=== PATIENT | male | born 1960 | race Caucasian/White ===

== ENCOUNTER 2019-06-28 10:55 | Inpatient (IN) | payer MEDICARE ==
[~2019-06-28] VITALS: Ht 185.4 cm; Wt 95.0 kg
[~2019-06-28 10:55] MED LIST: APIX2.5T PO; ATOR20TA PO; CALC300T5 PO; CARV25TA12 PO; FOLI-17 PO; INSU100C5 SQ-INSULIN; INSU100I32 SQ; LORA-247 PO; OMEG1CAP26 PO; SEMA0.25 SQ; VERA180T6 PO
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
--- NOTE | 2019-06-28 12:09 | NUR ---
PULSE OX DIPPING TO 76% WHILE SLEEPING. OXYGEN PLACED AT 2LITERS VIA NC. AWAITING US.
--- NOTE | 2019-06-28 12:21 | NUR ---
US AT BS.
--- NOTE | 2019-06-28 13:45 | NUR ---
ATTEMPT FOR PERIPHERAL IV ON L ARM NEEDED FOR CT ORDER. PT WITH DIFFICULT IV ACCESS, WILL HAVE US GUIDED IV PLACED.
--- NOTE | 2019-06-28 13:56 | NUR ---
CT WAITING FOR IV ACCESS FOR CONTRAST STUDY
[2019-06-28] MEDS ORDERED: HEPARIN 5,000 UNITS/ML, 1ML IV PRN (14:00)
[2019-06-28] MEDS ORDERED: HEPARIN 25,000 UNITS/500ML PMX 500 ML IV PRN (14:00)
[2019-06-28] MEDS ORDERED: HEPARIN 5,000 UNITS/ML, 1ML IV ONE (14:00)
[2019-06-28] MEDS ORDERED: SODIUM CHLORIDE FLUSH 10ML SYR IVF ONE (14:00)
--- NOTE | 2019-06-28 14:45 | NUR ---
CURT ORTEZ ATTEMPTING US IV START.
--- NOTE | 2019-06-28 15:38 | NUR ---
REPORT TO MARINO ORTEZ. WAITING FOR IV AND CT PRIOR TO TRANSFER TO FLOOR.
--- NOTE | 2019-06-28 15:47 | NUR ---
CT CALLED TO NOTIFY IV IN PLACE. CT WILL TAKE PT TO ADMIT BED IF LEAD INJECTION MOLD TECHNICIAN AVAILABLE.
[2019-06-28 15:55] LABS: ALBUMIN 2.6 g/dL (3.4-5.0); ANION GAP 10 mmol/L (5-15); CALCIUM 8.7 mg/dL (8.5-10.1); CHLORIDE 92 mmol/L (98-107); CREATININE 6.04 mg/dL (0.7-1.3)
[2019-06-28] MEDS: INSULIN LISPRO 100 UNITS/ML, PEN SQ-INSULIN SCH ×2 (16:00→20:17)
[2019-06-28] MEDS ORDERED: ONDANSETRON 2MG/ML, 2ML IVPush PRN (16:00)
[2019-06-28] MEDS ORDERED: PROMETHAZINE 25 MG/ML, 1ML IM PRN (16:00)
[2019-06-28] MEDS ORDERED: LABETALOL 5MG/ML, 20ML IVPush PRN (16:00)
[2019-06-28] MEDS ORDERED: ACETAMINOPHEN 325 MG TABLET PO PRN (16:00)
[2019-06-28] MEDS ORDERED: hydrALAzine 20 MG/ML, 1ML IVPush PRN (16:00)
--- NOTE | 2019-06-28 16:09 | NUR ---
PT TO CT
[2019-06-28] MEDS ORDERED: OMNIPAQUE 350 MG/ML, 100ML BOTTLE ONE (16:34)
[2019-06-28 16:40] LABS: HEMOGLOBIN A1C 6.2 % (4.2-6.3)
[2019-06-28 16:46] LABS: INTERNATIONAL NORMALIZED RATIO 1.14 (0.93-1.1); PROTHROMBIN TIME 11.9 Seconds (9.6-11.5)
[2019-06-28] MEDS ORDERED: SODIUM POLYSTYRENE SULFONATE ORAL SUSP PO ONE (17:00)
[2019-06-28 17:01] VITALS: BP 156/81
[2019-06-28 18:13] VITALS: BP 156/81
[2019-06-28] MEDS: SODIUM CHLORIDE 0.9% 1,000 ML IV SCH (18:22)
[2019-06-28 20:05] LABS: MD YES; MEAN CORPUSCULAR HEMOGLOBIN 34.5 pg (27.5-34.5); MEAN CORPUSCULAR HGB CONC 32.1 g/dL (33.2-36.2); MEAN CORPUSCULAR VOLUME 107.6 fL (81-97); RED CELL DISTRIBUTION WIDTH 20.5 % (9.4-14.8)
[2019-06-28 20:07] LABS: BAND#(MANUAL) 1.33 x10^3/uL; BANDS%(MANUAL) 58 % (0-7); BASOS#(MANUAL) 0.05 x10^3/uL (0-0.1); BASOS% (MANUAL) 2 % (0-1); EOS#(MANUAL) 0.05 x10^3/uL (0.0-0.4); EOS% (MANUAL) 2 % (1-7); LYMPH#(MANUAL) 0.39 x10^3/uL (1-3.4); LYMPHS% (MANUAL) 17 % (22-44); METAMYELOCYTES# (MANUAL) 0.07 x10^3/uL (0-0); METAMYELOCYTES% (MANUAL) 3 % (0-1); MONOS#(MANUAL) 0.07 x10^3/uL (0.3-2.7); MONOS% (MANUAL) 3 % (2-9); NRBC % (MANUAL) 2 % (0-1); SEG#(MANUAL) 0.35 x10^3/uL (1.8-6.8); SEGS% (MANUAL) 15 % (42-75)
[2019-06-28 20:08] LABS: ANISOCYTOSIS 2+; HOWELL-JOLLY BODIES 1+; POLYCHROMASIA 1+; TARGET CELLS 1+
[2019-06-28 20:09] LABS: <PLATELET ESTIMATE> ADEQUATE; <PLT MORPHOLOGY> NORMAL PLT MORPH; OVALOCYTES 1+
[2019-06-28 20:10] LABS: ECHINOCYTES 1+
[2019-06-28 20:19] LABS: PLATELET COUNT 235 x10^3/uL (130-400)
[2019-06-28] MEDS: ATORVASTATIN 20 MG TABLET PO SCH (20:20)
[2019-06-28 20:23] VITALS: BP 126/76
[2019-06-28 22:05] LABS: ANION GAP 11 mmol/L (5-15); CALCIUM 8.3 mg/dL (8.5-10.1); CHLORIDE 93 mmol/L (98-107); CREATININE 6.27 mg/dL (0.7-1.3)
[2019-06-29 02:48] VITALS: BP 147/81
[2019-06-29 03:10] LABS: CLOSTRIDIUM DIFFICILE ANTIGEN NEGATIVE; CLOSTRIDIUM DIFFICILE TOXIN NEGATIVE (Negative)
[2019-06-29 04:01] LABS: ALANINE AMINOTRANSFERASE 15 U/L (12-78); ALBUMIN 2.3 g/dL (3.4-5.0); ANION GAP 15 mmol/L (5-15); CALCIUM 8.3 mg/dL (8.5-10.1); CHLORIDE 92 mmol/L (98-107); CREATININE 6.71 mg/dL (0.7-1.3)
[2019-06-29 04:04] LABS: ALKALINE PHOSPHATASE 63 U/L (45-117); BILIRUBIN,TOTAL 0.9 mg/dL (0.2-1.0); TOTAL PROTEIN 6.2 g/dL (6.4-8.2)
[2019-06-29 04:31] LABS: MD YES; MEAN CORPUSCULAR HEMOGLOBIN 34.8 pg (27.5-34.5); MEAN CORPUSCULAR HGB CONC 32.7 g/dL (33.2-36.2); MEAN CORPUSCULAR VOLUME 106.4 fL (81-97); MEAN PLATELET VOLUME 8.8 fL (7.4-10.4); PLATELET COUNT 207 x10^3/uL (130-400); RED CELL DISTRIBUTION WIDTH 20.9 % (9.4-14.8)
[2019-06-29 04:37] LABS: BAND#(MANUAL) 0.57 x10^3/uL; BANDS%(MANUAL) 27 % (0-7); EOS#(MANUAL) 0.08 x10^3/uL (0.0-0.4); EOS% (MANUAL) 4 % (1-7); LYMPH#(MANUAL) 0.48 x10^3/uL (1-3.4); LYMPHS% (MANUAL) 23 % (22-44); METAMYELOCYTES# (MANUAL) 0.06 x10^3/uL (0-0); METAMYELOCYTES% (MANUAL) 3 % (0-1); MONOS#(MANUAL) 0.04 x10^3/uL (0.3-2.7); MONOS% (MANUAL) 2 % (2-9); NRBC % (MANUAL) 15 % (0-1); SEG#(MANUAL) 0.86 x10^3/uL (1.8-6.8); SEGS% (MANUAL) 41 % (42-75)
[2019-06-29 04:38] LABS: <PLATELET ESTIMATE> ADEQUATE; ANISOCYTOSIS 2+; ECHINOCYTES 1+; HOWELL-JOLLY BODIES 1+; OVALOCYTES 1+; PMNS WITH VACUOLES 1+; POLYCHROMASIA 1+; TARGET CELLS 1+; TEAR DROPS 1+
[2019-06-29 04:39] LABS: LARGE PLATELETS 1+
[2019-06-29] MEDS: SODIUM CHLORIDE 0.9% 1,000 ML IV SCH ×2 (06:32→22:44)
[2019-06-29 06:45] VITALS: BP 151/79
[2019-06-29] MEDS ORDERED: LOPERAMIDE 2 MG CAPSULE PO PRN (08:30)
[2019-06-29] MEDS: INSULIN LISPRO 100 UNITS/ML, PEN SQ-INSULIN SCH ×4 (08:30→21:21)
[2019-06-29] MEDS ORDERED: SODIUM POLYSTYRENE SULFONATE ORAL SUSP PO ONE (08:30)
[2019-06-29] MEDS: FOLIC ACID 1 MG TABLET PO SCH (09:00)
[2019-06-29] MEDS: CARVEDILOL 25 MG TABLET PO SCH (09:00)
[2019-06-29] MEDS: VERAPAMIL ER 180MG TABLET.ER PO SCH (09:00)
[2019-06-29 12:36] VITALS: BP 129/78
[2019-06-29] MEDS ORDERED: GLUCAGON 1 MG IM PRN (15:00)
[2019-06-29] MEDS ORDERED: DEXTROSE 50%, 50ML SYRINGE IVPush PRN (15:00)
[2019-06-29] MEDS ORDERED: DEXTROSE 4 GM TAB.CHEW PO PRN (15:00)
[2019-06-29] MEDS ORDERED: LIDOCAINE 1%, 10ML ONE (17:51)
[2019-06-29] MEDS ORDERED: FLUMAZENIL 0.1 MG/1 ML, 5ML ONE (18:05)
[2019-06-29] MEDS ORDERED: MIDAZOLAM 1 MG/ML, 5ML ONE (18:05)
[2019-06-29] MEDS ORDERED: FENTANYL PF 100 MCG/2ML ONE (18:05)
[2019-06-29] MEDS ORDERED: NALOXONE 1 MG/ML, 2ML ONE (18:06)
[2019-06-29] MEDS ORDERED: HEPARIN 1,000 UNITS/ML, 10ML ONE (18:06)
[2019-06-29] MEDS ORDERED: ALTEPLASE 10 MG in SODIUM CHLORIDE 0.9% 90 ML IV SCH (18:30)
[2019-06-29] MEDS: ATORVASTATIN 20 MG TABLET PO SCH (21:21)
[2019-06-29] MEDS: SODIUM CHLORIDE FLUSH 10ML SYR IVF SCH (21:29)
[2019-06-29 21:30] VITALS: BP 141/82
[2019-06-29] MEDS: APIXABAN 2.5 MG TABLET PO SCH (22:44)
[2019-06-30 00:23] VITALS: BP 112/55
[2019-06-30 01:04] VITALS: BP 123/54
[2019-06-30 02:00] VITALS: BP 108/55
[2019-06-30 05:19] LABS: ANION GAP 11 mmol/L (5-15); CALCIUM 8.3 mg/dL (8.5-10.1); CHLORIDE 97 mmol/L (98-107)
[2019-06-30 05:22] LABS: ALANINE AMINOTRANSFERASE 13 U/L (12-78); ALKALINE PHOSPHATASE 63 U/L (45-117); BILIRUBIN,TOTAL 0.8 mg/dL (0.2-1.0); CREATININE 5.22 mg/dL (0.7-1.3); TOTAL PROTEIN 5.8 g/dL (6.4-8.2)
[2019-06-30 08:00] VITALS: BP 170/51
[2019-06-30] MEDS: VERAPAMIL ER 180MG TABLET.ER PO SCH (08:55)
[2019-06-30] MEDS: INSULIN LISPRO 100 UNITS/ML, PEN SQ-INSULIN SCH ×2 (08:56→11:00)
[2019-06-30] MEDS: FOLIC ACID 1 MG TABLET PO SCH (08:56)
[2019-06-30] MEDS: CARVEDILOL 25 MG TABLET PO SCH (08:56)
[2019-06-30] MEDS: APIXABAN 2.5 MG TABLET PO SCH (08:56)
[2019-06-30] MEDS: SODIUM CHLORIDE FLUSH 10ML SYR IVF SCH (09:00)
[2019-06-30 10:00] VITALS: BP 130/75
[2019-06-30] MEDS ORDERED: LOPE2CAP PO (13:58)
[2019-06-30 14:14] VITALS: BP 143/64
== END 2019-06-30 15:36 | disposition home or self-care (01) | DRG 252 ==
LOC: ED 13:48 → EDIP 14:46 → 4WST 16:36
PROVIDERS: ADMIT Internal Medicine; ATTEND Internal Medicine
PROC: 05753DZ Dilation of Right Subclavian Vein with Intraluminal Device, Percutaneous Approach (ICD-10-PCS; principal; 2019-06-29)
PROC: 05773ZZ Dilation of Right Axillary Vein, Percutaneous Approach (ICD-10-PCS; 2019-06-29)
PROC: B546ZZ3 Ultrasonography of Right Subclavian Vein, Intravascular (ICD-10-PCS; 2019-06-29)
PROC: 5A1D70Z Performance of Urinary Filtration, Intermittent, Less than 6 Hours Per Day (ICD-10-PCS; 2019-06-29)
PROC: B51M1ZZ Fluoroscopy of Right Upper Extremity Veins using Low Osmolar Contrast (ICD-10-PCS; 2019-06-29)
DX: I82.621 Acute embolism and thrombosis of deep veins of right upper extremity (principal); N18.6 End stage renal disease; I12.0 Hypertensive chronic kidney disease with stage 5 chronic kidney disease or end stage renal disease; C18.9 Malignant neoplasm of colon, unspecified; K52.1 Toxic gastroenteritis and colitis; T86.12 Kidney transplant failure; I82.A11 Acute embolism and thrombosis of right axillary vein; D63.1 Anemia in chronic kidney disease; E11.22 Type 2 diabetes mellitus with diabetic chronic kidney disease; E78.5 Hyperlipidemia, unspecified; E87.5 Hyperkalemia; I25.10 Atherosclerotic heart disease of native coronary artery without angina pectoris; K59.00 Constipation, unspecified; T45.1X5A Adverse effect of antineoplastic and immunosuppressive drugs, initial encounter; Y92.89 Other specified places as the place of occurrence of the external cause; Z79.01 Long term (current) use of anticoagulants; Z85.038 Personal history of other malignant neoplasm of large intestine; Z86.718 Personal history of other venous thrombosis and embolism; Z90.49 Acquired absence of other specified parts of digestive tract; Z99.2 Dependence on renal dialysis
CPT/HCPCS: 36415; 37238; 37252; 80048; 80053; 82040; 82962; 83036; 83735; 84100; 85025; 85520; 85610; 86704; 86706; 87324; 87340; 89055; 90935; 99156; 99157; C1725; G0378; J1644; J2250; J3010; Q9967; C1751; C1753; C1769; C1876; C1894; J1815; J2310; J7030

== ENCOUNTER 2019-09-19 16:06 | Inpatient (IN) | payer MEDICARE ==
[~2019-09-19] VITALS: Ht 188 cm; Wt 97.5 kg
[~2019-09-19 16:06] MED LIST changes: +LOPE2CAP PO
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
[2019-09-19 17:21] LABS: ALANINE AMINOTRANSFERASE 12 U/L (12-78); ALBUMIN 2.3 g/dL (3.4-5.0); ANION GAP 7 mmol/L (5-15); CALCIUM 9.3 mg/dL (8.5-10.1); CHLORIDE 98 mmol/L (98-107); CREATININE 4.58 mg/dL (0.7-1.3)
--- NOTE | 2019-09-19 17:23 | NUR ---
PT REFUSING TO HAVE LABS DRAWN PERIPHERALLY, PT HAS A PORT. OK PER ERMD TO ACCESS PORT, LABS DRAWN AND SENT.
[2019-09-19 17:26] LABS: ALKALINE PHOSPHATASE 62 U/L (45-117); BILIRUBIN,TOTAL 0.7 mg/dL (0.2-1.0); TOTAL PROTEIN 5.5 g/dL (6.4-8.2)
[2019-09-19 17:31] LABS: INTERNATIONAL NORMALIZED RATIO 1.14 (0.93-1.1); PROTHROMBIN TIME 12.1 Seconds (9.6-11.5)
--- NOTE | 2019-09-19 17:32 | NUR ---
NUMBER MARY JANE [phone]
[2019-09-19 17:37] LABS: MD YES; MEAN CORPUSCULAR HEMOGLOBIN 34.2 pg (27.5-34.5); MEAN CORPUSCULAR HGB CONC 32.9 g/dL (33.2-36.2); MEAN CORPUSCULAR VOLUME 103.9 fL (81-97); MEAN PLATELET VOLUME 7.9 fL (7.4-10.4); PLATELET COUNT 156 x10^3/uL (130-400); RED BLOOD COUNT 2.85 x10^6/uL (4.38-5.82); RED CELL DISTRIBUTION WIDTH 21.6 % (9.4-14.8)
[2019-09-19 17:46] LABS: BAND#(MANUAL) 0.16 x10^3/uL; BANDS%(MANUAL) 8 % (0-7); LYMPHS% (MANUAL) 25 % (22-44); MONOS#(MANUAL) 0.04 x10^3/uL (0.3-2.7); MONOS% (MANUAL) 2 % (2-9); NRBC % (MANUAL) 7 % (0-1); SEGS% (MANUAL) 65 % (42-75)
[2019-09-19 17:47] LABS: <PLATELET ESTIMATE> ADEQUATE; <PLT MORPHOLOGY> NORMAL PLT MORPH; ANISOCYTOSIS 2+; ECHINOCYTES 1+; OVALOCYTES 1+; POLYCHROMASIA 1+; TARGET CELLS 1+; TEAR DROPS 1+
[2019-09-19 17:53] LABS: ACETONE, SERUM Negative (Negative)
[2019-09-19] MEDS ORDERED: CEFTRIAXONE PMX 1GM/50ML 50 ML IVPB ONE (18:00)
[2019-09-19] MEDS ORDERED: ACETAMINOPHEN 500 MG TABLET PO ONE (18:00)
[2019-09-19] MEDS ORDERED: SODIUM CHLORIDE 0.9% 1,000ML IVBOLUS ONE ×2 (18:30→20:30)
--- NOTE | 2019-09-19 18:32 | NUR ---
PT WITH LOW BP NOW 82/45. ERMD UPDATED, ORDERS RECIEVED FOR FLUID BOLUS. WILL MEDICATE PER MAR. Addendum: 09/19/19 at 1848 by MAISHA CHARTED BY JANAK VARELA
--- NOTE | 2019-09-19 18:59 | NUR ---
PT BP NOW 114/44 S/P BOLUS, ERMD IN TO EVAL PT. ORDERS RECIEVED FOR CONTINUOUS FLUIDS AT THIS TIME. OK TO HANG ABX PER . REPORT TO MORRIS RN
[2019-09-19] MEDS ORDERED: SODIUM CHLORIDE 0.9% 1,000 ML IV ONE (19:00)
[2019-09-19] MEDS ORDERED: CEFTRIAXONE PMX 1GM/50ML 50 ML ONE (19:02)
[2019-09-19] MEDS ORDERED: VANCOMYCIN PER PHARMACY MC PRN (19:30)
[2019-09-19] MEDS ORDERED: MEROPENEM 1 GM in SODIUM CHLORIDE 0.9% 100 ML IV SCH (19:30)
[2019-09-19] MEDS ORDERED: VANCOMYCIN PMX 1GM/200ML 200 ML IV ONE (19:30)
[2019-09-19] MEDS ORDERED: morphine SULFATE 10 MG/ML, 1ML IVPush PRN (20:00)
[2019-09-19] MEDS ORDERED: DOCUSATE 100 MG CAPSULE PO PRN (20:00)
[2019-09-19] MEDS ORDERED: OXYcodone IR 5MG TABLET PO PRN (20:00)
[2019-09-19] MEDS ORDERED: ONDANSETRON ODT 4 MG PO PRN (20:00)
[2019-09-19] MEDS ORDERED: BISACODYL 10 MG SUPP PR PRN (20:00)
[2019-09-19] MEDS ORDERED: hydrALAzine 20 MG/ML, 1ML IVPush PRN (20:00)
[2019-09-19] MEDS ORDERED: HEPARIN 5,000 UNITS/ML, 1ML SQ SCH (20:00)
[2019-09-19] MEDS ORDERED: ONDANSETRON 2MG/ML, 2ML IVPush PRN (20:00)
[2019-09-19] MEDS ORDERED: PROMETHAZINE 25 MG/ML, 1ML IM PRN (20:00)
[2019-09-19] MEDS ORDERED: POLYETHYLENE GLYCOL 17 GM PACKET PO PRN (20:00)
[2019-09-19] MEDS ORDERED: ACETAMINOPHEN 500 MG TABLET ONE (20:06)
[2019-09-19 20:21] LABS: FREE T4 (FREE THYROXINE) 1.43 ng/dL (0.76-1.46)
[2019-09-19] MEDS: MEROPENEM 500 MG in SODIUM CHLORIDE 0.9% 100 ML IV SCH (20:31)
--- NOTE | 2019-09-19 20:34 | NUR ---
Pt noted to be hypotensive with IVF infusing at a rate of 125ml/hr showing a MAP of 55. The IVF was open to bolus. The MAP improved to 62. MD informed and a 3rd liter IVF was ordered as bolus. Rocephin given. Meropenem infusing.
--- NOTE | 2019-09-19 20:45 | NUR ---
Per MD order, IVF were stopped. Pt moved to trauma bay for ICU admit and pressors. Warming device removed from bed.
--- NOTE | 2019-09-19 20:46 | NUR ---
PT MOVED FROM ROOM 15 TO T3. REPORT RECEIVED, POC DISCUSSED, CARE ASSUMED. PT RESTING QUIETLY. NAD. VS UPDATED.
--- NOTE | 2019-09-19 20:54 | NUR ---
PT PLACED ON MEAT INSPECTOR, SHOWS NSR WITH 1 DEG[address] AV BLOCK,
[2019-09-19] MEDS ORDERED: APIXABAN 2.5 MG TABLET PO SCH (21:00)
--- NOTE | 2019-09-19 21:14 | NUR ---
REPORT TO PÉREZ TAVERAS. PT TO BE ADMITTED TO CCU [id number].
[2019-09-19] MEDS: INSULIN LISPRO 100 UNITS/ML, PEN SQ-INSULIN SCH (21:44)
[2019-09-19] MEDS: INSULIN GLARGINE 100 UNITS/ML, PEN SQ-INSULIN SCH (21:45)
[2019-09-19 21:48] VITALS: BP 129/60
[2019-09-19] MEDS: CALCIUM CARBONATE 500 MG TAB.CHEW PO SCH (21:56)
[2019-09-19] MEDS: ATORVASTATIN 20 MG TABLET PO SCH (21:56)
[2019-09-19] MEDS ORDERED: PHARMACOKINETIC CONSULTATION MC ONE (22:00)
[2019-09-19] MEDS ORDERED: VANCOMYCIN 1,500 MG in SODIUM CHLORIDE 0.9% 250 ML IV ONE (22:00)
[2019-09-19] MEDS ORDERED: PHARMACOKINETIC MONITORING MC PRN (22:00)
[2019-09-20] MEDS ORDERED: NOREPINEPHRINE 8 MG in SODIUM CHLORIDE 0.9% 242 ML IV PRN
[2019-09-20 04:07] VITALS: BP 117/45
[2019-09-20 04:51] LABS: ALANINE AMINOTRANSFERASE 13 U/L (12-78); ALBUMIN 2.1 g/dL (3.4-5.0); ANION GAP 7 mmol/L (5-15); CHLORIDE 99 mmol/L (98-107); CREATININE 4.65 mg/dL (0.7-1.3)
[2019-09-20 04:53] LABS: ALKALINE PHOSPHATASE 54 U/L (45-117); BILIRUBIN,TOTAL 0.8 mg/dL (0.2-1.0); CHOL/HDL RATIO 2.1; CHOLESTEROL, TOTAL 77 mg/dL (140-239); HDL CHOL % 48 % (26-37); HDL CHOLESTEROL (DIRECT) 37 mg/dL (40-60); LDL CHOLESTEROL,CALCULATED 16 mg/dL (54-169); LDL/HDL RATIO 0.4 (0.5-3.0); TOTAL PROTEIN 5.3 g/dL (6.4-8.2); TRIGLYCERIDES 121 mg/dL (50-200); VLDL CHOLESTEROL 24 mg/dL (0-25)
[2019-09-20 05:51] LABS: MD YES; MEAN CORPUSCULAR HEMOGLOBIN 33.9 pg (27.5-34.5); MEAN CORPUSCULAR HGB CONC 32.5 g/dL (33.2-36.2); MEAN CORPUSCULAR VOLUME 104.1 fL (81-97); MEAN PLATELET VOLUME 8.8 fL (7.4-10.4); PLATELET COUNT 174 x10^3/uL (130-400); RED BLOOD COUNT 2.87 x10^6/uL (4.38-5.82); RED CELL DISTRIBUTION WIDTH 21.9 % (9.4-14.8)
[2019-09-20 05:56] LABS: BANDS%(MANUAL) 43 % (0-7); BASOS#(MANUAL) 0.02 x10^3/uL (0-0.1); BASOS% (MANUAL) 1 % (0-1); LYMPH#(MANUAL) 0.38 x10^3/uL (1-3.4); LYMPHS% (MANUAL) 18 % (22-44); METAMYELOCYTES# (MANUAL) 0.23 x10^3/uL (0-0); METAMYELOCYTES% (MANUAL) 11 % (0-1); MONOS#(MANUAL) 0.02 x10^3/uL (0.3-2.7); MONOS% (MANUAL) 1 % (2-9); MYELOCYTES# (MANUAL) 0.04 x10^3/uL (0-0); MYELOCYTES% (MANUAL) 2 % (0-0); NRBC % (MANUAL) 7 % (0-1); SEGS% (MANUAL) 24 % (42-75)
[2019-09-20 06:02] LABS: ANISOCYTOSIS 2+; OVALOCYTES 1+; TARGET CELLS 1+
[2019-09-20 06:03] LABS: ECHINOCYTES 1+; POLYCHROMASIA 1+
[2019-09-20 06:04] LABS: HOWELL-JOLLY BODIES 1+
[2019-09-20 06:05] LABS: <PLATELET ESTIMATE> ADEQUATE; <PLT MORPHOLOGY> NORMAL PLT MORPH; PMNS WITH VACUOLES 1+
[2019-09-20] MEDS ORDERED: HEPARIN 5,000 UNITS/ML, 1ML ONE (06:44)
[2019-09-20] MEDS ORDERED: HEPARIN 25,000 UNITS/250ML PMX 250 ML ONE (06:44)
[2019-09-20] MEDS: INSULIN LISPRO 100 UNITS/ML, PEN SQ-INSULIN SCH ×4 (08:30→21:44)
[2019-09-20] MEDS ORDERED: VERAPAMIL ER 180MG TABLET.ER PO SCH (09:00)
[2019-09-20] MEDS ORDERED: CARVEDILOL 25 MG TABLET PO SCH (09:00)
[2019-09-20] MEDS: MEROPENEM 500 MG in SODIUM CHLORIDE 0.9% 100 ML IV SCH ×2 (09:04→21:50)
[2019-09-20] MEDS: CALCIUM CARBONATE 500 MG TAB.CHEW PO SCH ×2 (09:10→21:30)
[2019-09-20] MEDS: FOLIC ACID 1 MG TABLET PO SCH (09:10)
[2019-09-20] MEDS: LORATADINE 10 MG TABLET PO SCH (09:10)
[2019-09-20] MEDS ORDERED: HEPARIN 5,000 UNITS/ML, 1ML IV ONE (10:00)
[2019-09-20] MEDS: HEPARIN 25,000 UNITS/250ML PMX 250 ML IV PRN (10:49)
[2019-09-20] MEDS: ATORVASTATIN 20 MG TABLET PO SCH (21:30)
[2019-09-20] MEDS: INSULIN GLARGINE 100 UNITS/ML, PEN SQ-INSULIN SCH (21:51)
[2019-09-21 04:00] VITALS: BP 118/52
[2019-09-21 05:29] LABS: ALANINE AMINOTRANSFERASE 17 U/L (12-78); ANION GAP 8 mmol/L (5-15); CALCIUM 8.8 mg/dL (8.5-10.1); CHLORIDE 94 mmol/L (98-107)
[2019-09-21 05:32] LABS: ALKALINE PHOSPHATASE 56 U/L (45-117); BILIRUBIN,TOTAL 0.9 mg/dL (0.2-1.0); TOTAL PROTEIN 5.6 g/dL (6.4-8.2); VANCOMYCIN,RANDOM 14.5 mcg/mL
[2019-09-21 06:01] LABS: MEAN CORPUSCULAR HEMOGLOBIN 33.9 pg (27.5-34.5); MEAN CORPUSCULAR HGB CONC 32.6 g/dL (33.2-36.2); MEAN CORPUSCULAR VOLUME 103.9 fL (81-97); MEAN PLATELET VOLUME 9.9 fL (7.4-10.4); PLATELET COUNT 150 x10^3/uL (130-400); RED BLOOD COUNT 2.72 x10^6/uL (4.38-5.82); RED CELL DISTRIBUTION WIDTH 22.6 % (9.4-14.8)
[2019-09-21 06:02] LABS: MD YES
[2019-09-21 06:05] LABS: BANDS%(MANUAL) 9 % (0-7); EOS#(MANUAL) 0.07 x10^3/uL (0.0-0.4); EOS% (MANUAL) 3 % (1-7); LYMPH#(MANUAL) 0.18 x10^3/uL (1-3.4); LYMPHS% (MANUAL) 8 % (22-44); METAMYELOCYTES# (MANUAL) 0.07 x10^3/uL (0-0); METAMYELOCYTES% (MANUAL) 3 % (0-1); MONOS#(MANUAL) 0.09 x10^3/uL (0.3-2.7); MONOS% (MANUAL) 4 % (2-9); NRBC % (MANUAL) 4 % (0-1); SEG#(MANUAL) 1.61 x10^3/uL (1.8-6.8); SEGS% (MANUAL) 73 % (42-75)
[2019-09-21 06:06] LABS: <PLATELET ESTIMATE> ADEQUATE; ANISOCYTOSIS 2+; ECHINOCYTES 1+; HOWELL-JOLLY BODIES 1+; LARGE PLATELETS 1+; OVALOCYTES 1+; PMNS WITH VACUOLES 1+; POLYCHROMASIA 1+; TARGET CELLS 1+
[2019-09-21] MEDS ORDERED: SODIUM CHLORIDE 0.9%, 500ML IVBOLUS ONE (08:30)
[2019-09-21] MEDS: MEROPENEM 500 MG in SODIUM CHLORIDE 0.9% 100 ML IV SCH ×2 (08:45→21:05)
[2019-09-21] MEDS: HEPARIN 25,000 UNITS/250ML PMX 250 ML IV PRN (08:47)
[2019-09-21] MEDS: INSULIN LISPRO 100 UNITS/ML, PEN SQ-INSULIN SCH ×4 (08:51→21:15)
[2019-09-21] MEDS: FOLIC ACID 1 MG TABLET PO SCH (09:00)
[2019-09-21] MEDS: LORATADINE 10 MG TABLET PO SCH (09:00)
[2019-09-21] MEDS: CALCIUM CARBONATE 500 MG TAB.CHEW PO SCH ×2 (09:00→21:05)
[2019-09-21] MEDS ORDERED: VANCOMYCIN 1,800 MG in SODIUM CHLORIDE 0.9% 250 ML IV ONE (11:00)
[2019-09-21] MEDS ORDERED: ARANESP 100 MCG/ML **ESRD IV SCH (11:30)
[2019-09-21] MEDS ORDERED: VANCOMYCIN 1,000 MG in SODIUM CHLORIDE 0.9% 250 ML IV ONE (12:00)
[2019-09-21] MEDS ORDERED: EPINEPHRINE 1 MG/ML, 1ML ONE (14:20)
[2019-09-21] MEDS ORDERED: BUPIVACAINE/PF 0.5% ONE (14:20)
[2019-09-21] MEDS ORDERED: MIDAZOLAM 1 MG/ML, 5ML ONE (15:38)
[2019-09-21] MEDS ORDERED: FENTANYL PF 250 MCG/5ML ONE (15:38)
[2019-09-21] MEDS ORDERED: PROPOFOL 10 MG/ML, 20ML ONE (15:40)
[2019-09-21] MEDS ORDERED: FENTANYL PF 100 MCG/2ML IV PRN (16:00)
[2019-09-21] MEDS ORDERED: OXYcodone 5 MG/5 ML ORAL.SOL UDC PO PRN (16:00)
[2019-09-21] MEDS ORDERED: ONDANSETRON 2MG/ML, 2ML IV PRN (16:00)
[2019-09-21] MEDS ORDERED: HYDROmorphone 2 MG/ML, 1ML IVPush PRN (16:00)
[2019-09-21] MEDS ORDERED: MORPHINE SULFATE 4 MG/ML, 1ML IVPush PRN (16:00)
[2019-09-21] MEDS ORDERED: PROMETHAZINE 25 MG/ML, 1ML IV PRN (16:00)
[2019-09-21] MEDS ORDERED: hydrALAzine 20 MG/ML, 1ML IV PRN (16:00)
[2019-09-21] MEDS ORDERED: LABETALOL 5MG/ML, 20ML IV PRN (16:00)
[2019-09-21] MEDS: ATORVASTATIN 20 MG TABLET PO SCH (21:05)
[2019-09-21] MEDS: INSULIN GLARGINE 100 UNITS/ML, PEN SQ-INSULIN SCH (21:15)
[2019-09-21] MEDS: HEPARIN 5,000 UNITS/ML, 1ML IV PRN (23:57)
[2019-09-22 06:25] LABS: ANION GAP 7 mmol/L (5-15); CHLORIDE 97 mmol/L (98-107); CREATININE 4.29 mg/dL (0.7-1.3)
[2019-09-22] MEDS: HEPARIN 5,000 UNITS/ML, 1ML IV PRN ×2 (06:42→20:14)
[2019-09-22 06:45] LABS: MD YES; MEAN CORPUSCULAR HEMOGLOBIN 33.6 pg (27.5-34.5); MEAN CORPUSCULAR HGB CONC 32.2 g/dL (33.2-36.2); MEAN CORPUSCULAR VOLUME 104.3 fL (81-97); MEAN PLATELET VOLUME 9.8 fL (7.4-10.4); PLATELET COUNT 119 x10^3/uL (130-400); RED BLOOD COUNT 2.47 x10^6/uL (4.38-5.82); RED CELL DISTRIBUTION WIDTH 22.4 % (9.4-14.8)
[2019-09-22 06:53] LABS: BAND#(MANUAL) 0.03 x10^3/uL; BANDS%(MANUAL) 3 % (0-7); EOS#(MANUAL) 0.07 x10^3/uL (0.0-0.4); EOS% (MANUAL) 7 % (1-7); LYMPH#(MANUAL) 0.32 x10^3/uL (1-3.4); LYMPHS% (MANUAL) 32 % (22-44); MONOS#(MANUAL) 0.06 x10^3/uL (0.3-2.7); MONOS% (MANUAL) 6 % (2-9); NRBC % (MANUAL) 4 % (0-1); REACTIVE LYMPHS # (MANUAL) 0.01 x10^3/uL (0-0); REACTIVE LYMPHS % (MANUAL) 1 % (0-0); SEG#(MANUAL) 0.51 x10^3/uL (1.8-6.8); SEGS% (MANUAL) 51 % (42-75)
[2019-09-22 06:54] LABS: ANISOCYTOSIS 2+; HOWELL-JOLLY BODIES 1+; HYPOCHROMIA 1+; OVALOCYTES 1+; POLYCHROMASIA 1+; TARGET CELLS 1+
[2019-09-22 06:56] LABS: <PLATELET ESTIMATE> DECREASED; <PLT MORPHOLOGY> NORMAL PLT MORPH
[2019-09-22] MEDS: CEFTRIAXONE PMX 2GM/50ML 50 ML IV SCH (07:31)
[2019-09-22] MEDS: INSULIN LISPRO 100 UNITS/ML, PEN SQ-INSULIN SCH ×4 (07:31→20:15)
[2019-09-22] MEDS: CALCIUM CARBONATE 500 MG TAB.CHEW PO SCH ×2 (09:02→20:11)
[2019-09-22] MEDS: LORATADINE 10 MG TABLET PO SCH (09:02)
[2019-09-22] MEDS: FOLIC ACID 1 MG TABLET PO SCH (09:03)
[2019-09-22] MEDS ORDERED: FENTANYL PF 100 MCG/2ML ONE (09:16)
[2019-09-22] MEDS: TBO-FILGRASTIM 480 MCG/0.8 ML SQ SCH (09:21)
[2019-09-22] MEDS ORDERED: FENTANYL PF 100 MCG/2ML IVPush ONE (09:30)
[2019-09-22] MEDS: HEPARIN 25,000 UNITS/250ML PMX 250 ML IV PRN (12:31)
[2019-09-22 13:49] VITALS: BP 152/72
[2019-09-22 19:22] VITALS: BP 159/79
[2019-09-22] MEDS: ATORVASTATIN 20 MG TABLET PO SCH (20:11)
[2019-09-22] MEDS: INSULIN GLARGINE 100 UNITS/ML, PEN SQ-INSULIN SCH (20:15)
[2019-09-23 01:29] VITALS: BP 108/48
[2019-09-23] MEDS: HEPARIN 5,000 UNITS/ML, 1ML IV PRN (03:20)
[2019-09-23] MEDS: HEPARIN 25,000 UNITS/250ML PMX 250 ML IV PRN ×2 (03:20→17:10)
[2019-09-23 03:31] VITALS: BP 130/66
[2019-09-23] MEDS: INSULIN LISPRO 100 UNITS/ML, PEN SQ-INSULIN SCH ×4 (07:39→21:11)
[2019-09-23] MEDS: CEFTRIAXONE PMX 2GM/50ML 50 ML IV SCH (07:46)
[2019-09-23 10:00] VITALS: BP 144/59
[2019-09-23 10:15] LABS: MEAN CORPUSCULAR HEMOGLOBIN 33.3 pg (27.5-34.5); MEAN CORPUSCULAR HGB CONC 31.8 g/dL (33.2-36.2); MEAN CORPUSCULAR VOLUME 104.7 fL (81-97); MEAN PLATELET VOLUME 10.1 fL (7.4-10.4); PLATELET COUNT 128 x10^3/uL (130-400); RED BLOOD COUNT 2.46 x10^6/uL (4.38-5.82); RED CELL DISTRIBUTION WIDTH 21.7 % (9.4-14.8)
[2019-09-23] MEDS: FOLIC ACID 1 MG TABLET PO SCH (10:26)
[2019-09-23] MEDS: LORATADINE 10 MG TABLET PO SCH (10:26)
[2019-09-23] MEDS: CALCIUM CARBONATE 500 MG TAB.CHEW PO SCH ×2 (10:26→17:04)
[2019-09-23] MEDS: TBO-FILGRASTIM 480 MCG/0.8 ML SQ SCH (10:26)
[2019-09-23 11:13] LABS: BASOPHILS % (AUTO) 0 % (0-1); EOSINOPHILS # (AUTO) 0.05 x10^3/uL (0-0.4); EOSINOPHILS % (AUTO) 7 % (1-7); LYMPHOCYTES # (AUTO) 0.44 x10^3/uL (1-3.4); LYMPHOCYTES % (AUTO) 67 % (22-44); MD SCAN; MONOCYTES # (AUTO) 0.03 x10^3/uL (0.2-0.8); MONOCYTES % (AUTO) 5 % (2-9); NEUTROPHILS # (AUTO) 0.13 x10^3/uL (1.8-6.8); NEUTROPHILS % (AUTO) 20 % (42-75)
[2019-09-23 13:18] VITALS: BP 147/64
[2019-09-23 14:16] VITALS: BP 119/61
[2019-09-23] MEDS ORDERED: FAMOTIDINE 20 MG/2 ML IVPush ONE (18:00)
[2019-09-23 19:22] VITALS: BP 169/84
[2019-09-23] MEDS: ATORVASTATIN 20 MG TABLET PO SCH (20:40)
[2019-09-23] MEDS: INSULIN GLARGINE 100 UNITS/ML, PEN SQ-INSULIN SCH (21:12)
[2019-09-24 02:31] VITALS: BP 156/77
[2019-09-24 06:49] LABS: MEAN CORPUSCULAR HEMOGLOBIN 33.6 pg (27.5-34.5); MEAN CORPUSCULAR HGB CONC 32.4 g/dL (33.2-36.2); MEAN CORPUSCULAR VOLUME 103.6 fL (81-97); MEAN PLATELET VOLUME 10.1 fL (7.4-10.4); PLATELET COUNT 114 x10^3/uL (130-400); RED BLOOD COUNT 2.34 x10^6/uL (4.38-5.82); RED CELL DISTRIBUTION WIDTH 21.8 % (9.4-14.8)
[2019-09-24 06:53] LABS: MD YES
[2019-09-24 07:00] LABS: ANISOCYTOSIS 2+; BAND#(MANUAL) 0.13 x10^3/uL; BANDS%(MANUAL) 13 % (0-7); EOS#(MANUAL) 0.06 x10^3/uL (0.0-0.4); EOS% (MANUAL) 6 % (1-7); LYMPH#(MANUAL) 0.61 x10^3/uL (1-3.4); LYMPHS% (MANUAL) 61 % (22-44); METAMYELOCYTES# (MANUAL) 0.01 x10^3/uL (0-0); METAMYELOCYTES% (MANUAL) 1 % (0-1); MONOS#(MANUAL) 0.07 x10^3/uL (0.3-2.7); MONOS% (MANUAL) 7 % (2-9); NRBC % (MANUAL) 2 % (0-1); REACTIVE LYMPHS # (MANUAL) 0.01 x10^3/uL (0-0); REACTIVE LYMPHS % (MANUAL) 1 % (0-0); SEG#(MANUAL) 0.11 x10^3/uL (1.8-6.8); SEGS% (MANUAL) 11 % (42-75)
[2019-09-24] MEDS: INSULIN LISPRO 100 UNITS/ML, PEN SQ-INSULIN SCH ×4 (07:00→21:39)
[2019-09-24 07:01] LABS: OVALOCYTES 1+; TARGET CELLS 1+
[2019-09-24 07:02] LABS: <PLATELET ESTIMATE> DECREASED; HOWELL-JOLLY BODIES 1+
[2019-09-24 07:03] LABS: POLYCHROMASIA 1+
[2019-09-24 07:04] LABS: ECHINOCYTES 1+; LARGE PLATELETS 1+
[2019-09-24 07:17] VITALS: BP 133/72
[2019-09-24] MEDS: HEPARIN 25,000 UNITS/250ML PMX 250 ML IV PRN (07:21)
[2019-09-24] MEDS: CEFTRIAXONE PMX 2GM/50ML 50 ML IV SCH (07:42)
[2019-09-24] MEDS: FOLIC ACID 1 MG TABLET PO SCH (08:37)
[2019-09-24] MEDS: LORATADINE 10 MG TABLET PO SCH (08:37)
[2019-09-24] MEDS: CALCIUM CARBONATE 500 MG TAB.CHEW PO SCH ×2 (08:37→21:36)
[2019-09-24] MEDS: TBO-FILGRASTIM 480 MCG/0.8 ML SQ SCH (08:39)
[2019-09-24 13:34] VITALS: BP 136/81
[2019-09-24] MEDS ORDERED: LABETALOL 5MG/ML, 20ML IV PRN (14:00)
[2019-09-24] MEDS ORDERED: MEPERIDINE/PF 25MG/ML,1ML IVPush PRN (14:00)
[2019-09-24] MEDS ORDERED: ONDANSETRON 2MG/ML, 2ML IV PRN (14:00)
[2019-09-24] MEDS ORDERED: hydrALAzine 20 MG/ML, 1ML IV PRN (14:00)
[2019-09-24] MEDS ORDERED: EPHEDRINE 50 MG/ML, 1ML IVPush PRN (14:00)
[2019-09-24] MEDS ORDERED: OXYcodone 5 MG/5 ML ORAL.SOL UDC PO PRN (14:00)
[2019-09-24] MEDS ORDERED: FENTANYL PF 100 MCG/2ML IV PRN (14:00)
[2019-09-24] MEDS ORDERED: PROMETHAZINE 25 MG/ML, 1ML IV PRN (14:00)
[2019-09-24] MEDS ORDERED: HYDROmorphone 2 MG/ML, 1ML IVPush PRN (14:00)
[2019-09-24] MEDS ORDERED: BUPIVACAINE/PF 0.5% ONE (15:55)
[2019-09-24] MEDS ORDERED: HEPARIN 1,000 UNITS/ML, 10ML ONE (15:55)
[2019-09-24] MEDS ORDERED: EPINEPHRINE 1 MG/ML, 1ML ONE (15:55)
[2019-09-24] MEDS ORDERED: HEPARIN 5,000 UNITS/ML, 1ML ONE (15:59)
[2019-09-24] MEDS ORDERED: FENTANYL PF 100 MCG/2ML ONE (16:05)
[2019-09-24] MEDS ORDERED: LIDOCAINE-MPF 2% ,5ML ONE (16:06)
[2019-09-24] MEDS ORDERED: PROPOFOL 10 MG/ML, 20ML ONE (16:06)
[2019-09-24] MEDS ORDERED: SUCCINYLCHOLINE 20 MG/ML, 10ML ONE (16:06)
[2019-09-24] MEDS ORDERED: PHENYLEPHRINE 10 MG/ML ONE (16:33)
[2019-09-24] MEDS ORDERED: ONDANSETRON 2MG/ML, 2ML ONE (16:43)
[2019-09-24] MEDS ORDERED: DEXAMETHASONE 4 MG/ML, 1ML ONE ×2 (16:43)
[2019-09-24] MEDS ORDERED: LABETALOL 5MG/ML, 20ML ONE (17:46)
[2019-09-24 19:31] VITALS: BP 150/70
[2019-09-24] MEDS: ATORVASTATIN 20 MG TABLET PO SCH (21:36)
[2019-09-24] MEDS: INSULIN GLARGINE 100 UNITS/ML, PEN SQ-INSULIN SCH (21:39)
[2019-09-25 01:48] VITALS: BP 137/65
[2019-09-25 05:11] LABS: ANION GAP 7 mmol/L (5-15); CALCIUM 8.6 mg/dL (8.5-10.1); CHLORIDE 97 mmol/L (98-107); CREATININE 4.87 mg/dL (0.7-1.3)
[2019-09-25 05:12] LABS: ALBUMIN 2.2 g/dL (3.4-5.0)
[2019-09-25 06:18] LABS: MEAN CORPUSCULAR HEMOGLOBIN 33.5 pg (27.5-34.5); MEAN CORPUSCULAR HGB CONC 32.4 g/dL (33.2-36.2); MEAN CORPUSCULAR VOLUME 103.4 fL (81-97); MEAN PLATELET VOLUME 10.7 fL (7.4-10.4); PLATELET COUNT 142 x10^3/uL (130-400); RED BLOOD COUNT 2.48 x10^6/uL (4.38-5.82)
[2019-09-25 06:19] LABS: MD YES
[2019-09-25 06:23] LABS: MONOS#(MANUAL) 0.14 x10^3/uL (0.3-2.7); MONOS% (MANUAL) 9 % (2-9); NRBC % (MANUAL) 3 % (0-1); REACTIVE LYMPHS # (MANUAL) 0.02 x10^3/uL (0-0); REACTIVE LYMPHS % (MANUAL) 1 % (0-0)
[2019-09-25 06:24] LABS: ANISOCYTOSIS 2+; BAND#(MANUAL) 0.29 x10^3/uL; BANDS%(MANUAL) 19 % (0-7); LYMPH#(MANUAL) 0.47 x10^3/uL (1-3.4); LYMPHS% (MANUAL) 31 % (22-44); OVALOCYTES 1+; SEGS% (MANUAL) 40 % (42-75); TARGET CELLS 1+
[2019-09-25 06:25] LABS: <PLATELET ESTIMATE> ADEQUATE; HOWELL-JOLLY BODIES 1+; HYPOCHROMIA 1+; POLYCHROMASIA 1+
[2019-09-25 06:26] LABS: LARGE PLATELETS 1+; TOXIC GRAN 1+
[2019-09-25] MEDS: CEFTRIAXONE PMX 2GM/50ML 50 ML IV SCH (06:45)
[2019-09-25] MEDS: INSULIN LISPRO 100 UNITS/ML, PEN SQ-INSULIN SCH ×4 (07:00→21:00)
[2019-09-25 07:24] VITALS: BP 171/83
[2019-09-25] MEDS: HEPARIN 25,000 UNITS/250ML PMX 250 ML IV PRN (07:28)
[2019-09-25] MEDS: CALCIUM CARBONATE 500 MG TAB.CHEW PO SCH ×2 (09:00→20:06)
[2019-09-25] MEDS: FOLIC ACID 1 MG TABLET PO SCH (10:44)
[2019-09-25] MEDS: TBO-FILGRASTIM 480 MCG/0.8 ML SQ SCH (10:44)
[2019-09-25] MEDS: LORATADINE 10 MG TABLET PO SCH (10:44)
[2019-09-25 13:18] VITALS: BP 167/80
[2019-09-25] MEDS: APIXABAN 2.5 MG TABLET PO SCH ×2 (16:41→19:34)
[2019-09-25 19:28] VITALS: BP 153/88
[2019-09-25] MEDS: ACETAMINOPHEN 325 MG TABLET PO PRN (20:06)
[2019-09-25] MEDS: ATORVASTATIN 20 MG TABLET PO SCH (20:06)
[2019-09-25] MEDS: INSULIN GLARGINE 100 UNITS/ML, PEN SQ-INSULIN SCH (22:36)
[2019-09-26] MEDS: ACETAMINOPHEN 325 MG TABLET PO PRN ×4 (01:00→13:53)
[2019-09-26 02:00] VITALS: BP 172/92
[2019-09-26 05:54] LABS: ALBUMIN 2.5 g/dL (3.4-5.0); ANION GAP 11 mmol/L (5-15); CALCIUM 9.1 mg/dL (8.5-10.1); CHLORIDE 93 mmol/L (98-107)
[2019-09-26 05:56] LABS: CREATININE 6.21 mg/dL (0.7-1.3)
[2019-09-26] MEDS: CEFTRIAXONE PMX 2GM/50ML 50 ML IV SCH (06:24)
[2019-09-26 06:32] LABS: MD YES; MEAN CORPUSCULAR HEMOGLOBIN 33.9 pg (27.5-34.5); MEAN CORPUSCULAR HGB CONC 32.9 g/dL (33.2-36.2); MEAN CORPUSCULAR VOLUME 102.9 fL (81-97); MEAN PLATELET VOLUME 10.8 fL (7.4-10.4); PLATELET COUNT 199 x10^3/uL (130-400); RED BLOOD COUNT 2.43 x10^6/uL (4.38-5.82); RED CELL DISTRIBUTION WIDTH 22.1 % (9.4-14.8)
[2019-09-26 06:35] LABS: BAND#(MANUAL) 0.35 x10^3/uL; BANDS%(MANUAL) 7 % (0-7); EOS#(MANUAL) 0.25 x10^3/uL (0.0-0.4); EOS% (MANUAL) 5 % (1-7); LYMPH#(MANUAL) 1.55 x10^3/uL (1-3.4); LYMPHS% (MANUAL) 31 % (22-44); MONOS% (MANUAL) 14 % (2-9); NRBC % (MANUAL) 4 % (0-1); REACTIVE LYMPHS # (MANUAL) 0.05 x10^3/uL (0-0); REACTIVE LYMPHS % (MANUAL) 1 % (0-0); SEGS% (MANUAL) 42 % (42-75)
[2019-09-26 06:36] LABS: <PLATELET ESTIMATE> ADEQUATE; ANISOCYTOSIS 2+; HOWELL-JOLLY BODIES 1+; HYPOCHROMIA 1+; LARGE PLATELETS 1+; OVALOCYTES 1+; POLYCHROMASIA 1+; TARGET CELLS 1+
[2019-09-26 07:23] VITALS: BP 152/84
[2019-09-26] MEDS: CALCIUM CARBONATE 500 MG TAB.CHEW PO SCH ×2 (08:22→20:05)
[2019-09-26] MEDS: LORATADINE 10 MG TABLET PO SCH (08:22)
[2019-09-26] MEDS: APIXABAN 2.5 MG TABLET PO SCH ×2 (08:22→20:04)
[2019-09-26] MEDS: FOLIC ACID 1 MG TABLET PO SCH (08:22)
[2019-09-26] MEDS: INSULIN LISPRO 100 UNITS/ML, PEN SQ-INSULIN SCH ×4 (08:23→21:00)
[2019-09-26 13:28] VITALS: BP 164/80
[2019-09-26] MEDS: TBO-FILGRASTIM 480 MCG/0.8 ML SQ SCH (17:43)
[2019-09-26 19:44] VITALS: BP 154/80
[2019-09-26] MEDS: ATORVASTATIN 20 MG TABLET PO SCH (20:04)
[2019-09-26] MEDS: INSULIN GLARGINE 100 UNITS/ML, PEN SQ-INSULIN SCH (21:20)
[2019-09-27 01:38] VITALS: BP 137/68
[2019-09-27 04:54] LABS: ALBUMIN 2.2 g/dL (3.4-5.0); ANION GAP 8 mmol/L (5-15); CALCIUM 8.8 mg/dL (8.5-10.1); CHLORIDE 100 mmol/L (98-107); CREATININE 4.51 mg/dL (0.7-1.3)
[2019-09-27 05:58] LABS: MEAN CORPUSCULAR HEMOGLOBIN 33.3 pg (27.5-34.5); MEAN PLATELET VOLUME 10.7 fL (7.4-10.4); PLATELET COUNT 216 x10^3/uL (130-400); RED BLOOD COUNT 2.38 x10^6/uL (4.38-5.82); RED CELL DISTRIBUTION WIDTH 22.5 % (9.4-14.8)
[2019-09-27 05:59] LABS: MD YES
[2019-09-27 06:01] LABS: BAND#(MANUAL) 1.63 x10^3/uL; BANDS%(MANUAL) 17 % (0-7); EOS#(MANUAL) 0.19 x10^3/uL (0.0-0.4); EOS% (MANUAL) 2 % (1-7); LYMPH#(MANUAL) 1.25 x10^3/uL (1-3.4); LYMPHS% (MANUAL) 13 % (22-44); METAMYELOCYTES# (MANUAL) 0.19 x10^3/uL (0-0); METAMYELOCYTES% (MANUAL) 2 % (0-1); MONOS#(MANUAL) 0.67 x10^3/uL (0.3-2.7); MONOS% (MANUAL) 7 % (2-9); NRBC % (MANUAL) 12 % (0-1); SEG#(MANUAL) 5.66 x10^3/uL (1.8-6.8); SEGS% (MANUAL) 59 % (42-75); TOXIC GRAN 1+
[2019-09-27 06:02] LABS: <PLATELET ESTIMATE> ADEQUATE; ANISOCYTOSIS 2+; HOWELL-JOLLY BODIES 1+; HYPOCHROMIA 1+; LARGE PLATELETS 1+; OVALOCYTES 1+; POLYCHROMASIA 1+; TARGET CELLS 1+
[2019-09-27] MEDS: CEFTRIAXONE PMX 2GM/50ML 50 ML IV SCH (06:10)
[2019-09-27] MEDS: APIXABAN 2.5 MG TABLET PO SCH (07:42)
[2019-09-27] MEDS: LORATADINE 10 MG TABLET PO SCH (07:42)
[2019-09-27] MEDS: FOLIC ACID 1 MG TABLET PO SCH (07:42)
[2019-09-27] MEDS: CALCIUM CARBONATE 500 MG TAB.CHEW PO SCH (07:42)
[2019-09-27 08:00] VITALS: BP 141/71
[2019-09-27] MEDS: INSULIN LISPRO 100 UNITS/ML, PEN SQ-INSULIN SCH ×2 (08:06→12:00)
[2019-09-27] MEDS: TBO-FILGRASTIM 480 MCG/0.8 ML SQ SCH (10:37)
[2019-09-27] MEDS ORDERED: CEFT1FRO2 IV (11:33)
== END 2019-09-27 13:00 | disposition home health service (06) | DRG 314 ==
LOC: ED 18:33 → EDIP 20:38 → CCU 21:24 → 4NW 09-22 13:10
PROVIDERS: ADMIT Internal Medicine; ATTEND Internal Medicine
PROC: 5A1D70Z Performance of Urinary Filtration, Intermittent, Less than 6 Hours Per Day (ICD-10-PCS; 2019-09-21)
PROC: 0JPT0WZ Removal of Totally Implantable Vascular Access Device from Trunk Subcutaneous Tissue and Fascia, Open Approach (ICD-10-PCS; principal; 2019-09-21 14:30)
PROC: B5181ZA Fluoroscopy of Superior Vena Cava using Low Osmolar Contrast, Guidance (ICD-10-PCS; 2019-09-24)
PROC: 0JH63WZ Insertion of Totally Implantable Vascular Access Device into Chest Subcutaneous Tissue and Fascia, Percutaneous Approach (ICD-10-PCS; 2019-09-24)
PROC: B548ZZA Ultrasonography of Superior Vena Cava, Guidance (ICD-10-PCS; 2019-09-24)
PROC: 5A1D70Z Performance of Urinary Filtration, Intermittent, Less than 6 Hours Per Day (ICD-10-PCS; 2019-09-24)
PROC: 5A1D70Z Performance of Urinary Filtration, Intermittent, Less than 6 Hours Per Day (ICD-10-PCS; 2019-09-26)
DX: T80.218A Other infection due to central venous catheter, initial encounter (principal); A40.9 Streptococcal sepsis, unspecified; D61.810 Antineoplastic chemotherapy induced pancytopenia; J18.9 Pneumonia, unspecified organism; N18.6 End stage renal disease; R65.21 Severe sepsis with septic shock; E87.2 Acidosis; T82.510A Breakdown (mechanical) of surgically created arteriovenous fistula, initial encounter; D68.69 Other thrombophilia; E72.20 Disorder of urea cycle metabolism, unspecified; E87.1 Hypo-osmolality and hyponatremia; I12.0 Hypertensive chronic kidney disease with stage 5 chronic kidney disease or end stage renal disease; I82.721 Chronic embolism and thrombosis of deep veins of right upper extremity; I82.A11 Acute embolism and thrombosis of right axillary vein; Z94.0 Kidney transplant status; Y71.2 Prosthetic and other implants, materials and accessory cardiovascular devices associated with adverse incidents; T45.1X5A Adverse effect of antineoplastic and immunosuppressive drugs, initial encounter; B96.20 Unspecified Escherichia coli [E. coli] as the cause of diseases classified elsewhere; D63.1 Anemia in chronic kidney disease; D53.9 Nutritional anemia, unspecified; E11.22 Type 2 diabetes mellitus with diabetic chronic kidney disease; E88.09 Other disorders of plasma-protein metabolism, not elsewhere classified; H54.61 Unqualified visual loss, right eye, normal vision left eye; I25.10 Atherosclerotic heart disease of native coronary artery without angina pectoris; K59.00 Constipation, unspecified; Y83.8 Other surgical procedures as the cause of abnormal reaction of the patient, or of later complication, without mention of misadventure at the time of the procedure; Z79.01 Long term (current) use of anticoagulants; Z79.4 Long term (current) use of insulin; Z85.038 Personal history of other malignant neoplasm of large intestine; Z90.49 Acquired absence of other specified parts of digestive tract; Z92.3 Personal history of irradiation; Z93.2 Ileostomy status; Z93.3 Colostomy status; Z99.2 Dependence on renal dialysis; Y92.89 Other specified places as the place of occurrence of the external cause
CPT/HCPCS: 36415; 71045; 76000; 80048; 80053; 80061; 80069; 80202; 82010; 82140; 82947; 82962; 83036; 83605; 83690; 83735; 83880; 84100; 84145; 84439; 84443; 85025; 85520; 85610; 86705; 86706; 87040; 87070; 87075; 87077; 87081; 87176; 87186; 87205; 87340; 90935; 93005; 93306; 93990; 96365; C1894; G0378; J0171; J0696; J0882; J1100; J1644; J2185; J2250; J2405; J2704; J3010; J3370; C1788; J0330; J1447; J1815; J2370; J3490; J7030; J7040; J7050

== ENCOUNTER 2019-10-15 08:47 | Outpatient (CLI) | payer MEDICARE ==
[~2019-10-15 08:47] MED LIST changes: +CEFT1FRO2 IV
[2019-10-15] MEDS ORDERED: CARV12.52 PO (09:34)
[2019-10-15] MEDS ORDERED: LACT1CAP35 PO (09:38)
[2019-10-15] MEDS ORDERED: PATI8.4P PO (09:38)
[2019-10-15] MEDS ORDERED: LORA10TA75 PO (09:38)
[2019-10-15] MEDS ORDERED: CALC600T4 PO (09:38)
[2019-10-15] MEDS ORDERED: CINA30TA2 PO (09:38)
== END 2019-10-15 23:59 | disposition home or self-care (01) ==
LOC: STAR 08:47
PROVIDERS: ATTEND Surgery
DX: Z02.9 Encounter for administrative examinations, unspecified (principal)

== ENCOUNTER 2019-11-17 14:38 | Inpatient (IN) | payer MEDICARE ==
[~2019-11-17] VITALS: Ht 185.4 cm; Wt 93.8 kg
[~2019-11-17 14:38] MED LIST changes: +CALC600T4 PO; +CARV12.52 PO; +CINA30TA2 PO; +LACT1CAP35 PO; +LORA10TA75 PO; +PATI8.4P PO
[2019-11-17] MEDS ORDERED: SODIUM CHLORIDE 0.9% 1,000ML IVBOLUS ONE ×4 (15:00→18:00)
--- NOTE | 2019-11-17 15:01 | NUR ---
THIS IS A 59 YO M BIB EMS W/ C/O N/V/D AND WEAKNESS X2 DAYS. PT HAS HX OF COLORECTAL CX W/ COLOSTOMY AND UROSTOMY. LAST CHEM 10 DAYS AGO. LAST DIALYSIS 3 DAYS AGO. PT PRESENTS PALE AND HYPOTENSIVE 64/35 NOW REQUIRING 4L O2 TO STAY >90%. OTHER VS WDL. RESP EVEN AND UNLABORED. EJ STARTED AND 1L NS BOLUS STARTED. ACCESSED PORT. CULUTRES DRAWN FROM PERIPHERAL AND CENTRAL LINE. PT BP NOW 100/46. CONNECTED TO ALL MONITORING. CALL LIGHT IN REACH.
--- NOTE | 2019-11-17 15:24 | NUR ---
MED REC DONE.
--- NOTE | 2019-11-17 15:27 | NUR ---
PT BP 86/40. 2ND 1L BOLUS NS STARTED PER DR.VAN WASHINGTON VERBAL ORDER.
[2019-11-17 15:37] LABS: ALBUMIN 1.9 g/dL (3.4-5.0); ANION GAP 16 mmol/L (5-15); CALCIUM 8.6 mg/dL (8.5-10.1); CHLORIDE 75 mmol/L (98-107)
[2019-11-17 15:41] LABS: ALANINE AMINOTRANSFERASE 8 U/L (12-78); ALKALINE PHOSPHATASE 50 U/L (45-117); BILIRUBIN,TOTAL 0.6 mg/dL (0.2-1.0); CREATININE 7.61 mg/dL (0.7-1.3); TOTAL PROTEIN 5.6 g/dL (6.4-8.2)
--- NOTE | 2019-11-17 15:49 | NUR ---
PT RESTING ON [facility] W/ CALL LIGHT IN REACH. VS STABLE. CONNECTED TO MONITORING. AWAITING RESULTS.
[2019-11-17 15:57] LABS: MD YES
--- NOTE | 2019-11-17 15:57 | NUR ---
RESP DIVERSITY MANAGER INFORMED OF ELEVATED RESULTS.
[2019-11-17 15:58] LABS: MEAN CORPUSCULAR HEMOGLOBIN 32.5 pg (27.5-34.5); MEAN CORPUSCULAR HGB CONC 32.4 g/dL (33.2-36.2); MEAN CORPUSCULAR VOLUME 100.1 fL (81-97); MEAN PLATELET VOLUME 9.3 fL (7.4-10.4); PLATELET COUNT 172 x10^3/uL (130-400); RED BLOOD COUNT 2.69 x10^6/uL (4.38-5.82); RED CELL DISTRIBUTION WIDTH 22.7 % (9.4-14.8)
[2019-11-17 16:18] LABS: BAND#(MANUAL) 0.01 x10^3/uL; BANDS%(MANUAL) 4 % (0-7); LYMPH#(MANUAL) 0.19 x10^3/uL (1-3.4); LYMPHS% (MANUAL) 64 % (22-44); MONOS#(MANUAL) 0.05 x10^3/uL (0.3-2.7); MONOS% (MANUAL) 16 % (2-9); NRBC % (MANUAL) 48 % (0-1); SEG#(MANUAL) 0.05 x10^3/uL (1.8-6.8); SEGS% (MANUAL) 16 % (42-75)
[2019-11-17 16:19] LABS: ANISOCYTOSIS 2+; POLYCHROMASIA 1+; TARGET CELLS 1+
[2019-11-17 16:20] LABS: MICROCYTOSIS 1+
[2019-11-17 16:21] LABS: <PLATELET ESTIMATE> ADEQUATE; GIANT PLATELETS 1+; LARGE PLATELETS 1+
[2019-11-17] MEDS ORDERED: SODIUM CHLORIDE 0.9% 1,000 ML IV ONE (16:30)
[2019-11-17] MEDS ORDERED: VANCOMYCIN PER PHARMACY MC PRN ×2 (16:30→18:00)
[2019-11-17] MEDS ORDERED: CEFOTETAN PMX 2GM/50ML 50 ML IV ONE (16:30)
[2019-11-17] MEDS ORDERED: NOREPINEPHRINE 8 MG in SODIUM CHLORIDE 0.9% 242 ML IV PRN (17:00)
[2019-11-17] MEDS ORDERED: PHARMACOKINETIC MONITORING MC PRN ×2 (17:00→20:00)
[2019-11-17] MEDS ORDERED: PHARMACOKINETIC CONSULTATION MC ONE ×2 (17:00→20:00)
[2019-11-17] MEDS ORDERED: VANCOMYCIN 2,000 MG in SODIUM CHLORIDE 0.9% 500 ML IV ONE (17:00)
[2019-11-17 17:10] LABS: CLOSTRIDIUM DIFFICILE ANTIGEN NEGATIVE; CLOSTRIDIUM DIFFICILE TOXIN NEGATIVE (Negative)
--- NOTE | 2019-11-17 17:12 | NUR ---
PT HYPOTENSIVE. 3RD BOLUS 1L NS STARTED. ABX STARTED. DR.VAN WASHINGTON UNABLE TO COLLECT STRAIGHT CATH URINE SPECIMEN FROM UROSTOMY.
--- NOTE | 2019-11-17 17:27 | NUR ---
ADMITTING PROVIDER IN ROOM.
[2019-11-17] MEDS ORDERED: TBO-FILGRASTIM 480 MCG/0.8 ML SQ ONE (17:30)
[2019-11-17] MEDS ORDERED: SODIUM CHLORIDE 0.9% 1,000 ML IV SCH (17:38)
[2019-11-17] MEDS ORDERED: VASOPRESSIN 20 UNIT in SODIUM CHLORIDE 0.9% 99 ML IV PRN (17:38)
--- NOTE | 2019-11-17 17:58 | NUR ---
RECEIVED REPORT FROM KAYLEE CHOWDARY PT TO MAYBE HAVE LEVOPHED DRIP STARTED. LAST BP WAS 118/69 AFTER 3 LITERS OF FLUIDS. 250 MLS/HR OF NS STARTED PER MD. WILL DISCUSS LEVOPHED WITH MD. Addendum: 11/17/19 at 1800 by ALEGLISE 250MLS/HR LOWERED TO 150MLS/HR.
[2019-11-17] MEDS ORDERED: PANTOPRAZOLE 40 MG IV IV SCH (18:00)
[2019-11-17] MEDS ORDERED: ONDANSETRON 2MG/ML, 2ML IVPB PRN (18:00)
[2019-11-17] MEDS ORDERED: PHARMACY MAY ADJ FOR RENAL FX MC PRN (18:00)
[2019-11-17] MEDS ORDERED: POTASSIUM CHLORIDE PMX 100 ML IV ONE (18:00)
[2019-11-17] MEDS ORDERED: ACETAMINOPHEN 650 MG/20.3 ML UDC PO PRN (18:00)
[2019-11-17] MEDS ORDERED: NS + 20MEQ KCL 1,000 ML IV ONE (18:17)
[2019-11-17] MEDS ORDERED: PANTOPRAZOLE 40 MG IV ONE (18:17)
[2019-11-17 18:26] LABS: CRYPTOSPORIDIUM ANTIGEN Negative (Negative)
[2019-11-17] MEDS ORDERED: INSTRUCTION SEE COMMENTS XX ONE (18:30)
--- NOTE | 2019-11-17 18:30 | NUR ---
PER DR. HOLLIDAY, WITH BP HOLDING STEADY AFTER 3 LITERS OF NS, FOURTH LITER OF NS NOT TO BE GIVEN CONSIDERING NS AT 150 MLS/HR BEING INFUSED AND 50 MLS AN HOUR OF NS WITH 20 MEQ KCL TO BE STARTED.
[2019-11-17] MEDS: TBO-FILGRASTIM 480 MCG/0.8 ML SQ SCH (20:44)
[2019-11-17] MEDS: ATORVASTATIN 20 MG TABLET PO SCH (20:44)
[2019-11-17] MEDS: OMEGA-3/FISH OIL CAPSULE PO SCH (20:44)
[2019-11-17] MEDS: APIXABAN 2.5 MG TABLET PO SCH (20:45)
[2019-11-17] MEDS: PIPERACILLIN/TAZO/PMX 2.25GM 50 ML IV SCH (20:46)
[2019-11-17] MEDS: INSULIN LISPRO 100 UNITS/ML, PEN SQ-INSULIN SCH (20:51)
[2019-11-18 04:00] VITALS: BP 106/50
[2019-11-18] MEDS: PIPERACILLIN/TAZO/PMX 2.25GM 50 ML IV SCH ×3 (05:31→21:32)
[2019-11-18 06:20] LABS: ANION GAP 9 mmol/L (5-15); CALCIUM 7.5 mg/dL (8.5-10.1); CHLORIDE 90 mmol/L (98-107); CREATININE 6.83 mg/dL (0.7-1.3)
[2019-11-18 06:48] LABS: MD YES; MEAN CORPUSCULAR HEMOGLOBIN 32.9 pg (27.5-34.5); MEAN CORPUSCULAR HGB CONC 32.8 g/dL (33.2-36.2); MEAN CORPUSCULAR VOLUME 100.4 fL (81-97); MEAN PLATELET VOLUME 8.8 fL (7.4-10.4); PLATELET COUNT 145 x10^3/uL (130-400); RED BLOOD COUNT 2.47 x10^6/uL (4.38-5.82); RED CELL DISTRIBUTION WIDTH 22.7 % (9.4-14.8)
[2019-11-18 06:56] LABS: BAND#(MANUAL) 0.04 x10^3/uL; BANDS%(MANUAL) 8 % (0-7); EOS#(MANUAL) 0.01 x10^3/uL (0.0-0.4); EOS% (MANUAL) 2 % (1-7); LYMPH#(MANUAL) 0.21 x10^3/uL (1-3.4); LYMPHS% (MANUAL) 42 % (22-44); METAMYELOCYTES# (MANUAL) 0.01 x10^3/uL (0-0); METAMYELOCYTES% (MANUAL) 2 % (0-1); MONOS#(MANUAL) 0.13 x10^3/uL (0.3-2.7); MONOS% (MANUAL) 26 % (2-9); NRBC % (MANUAL) 62 % (0-1); SEGS% (MANUAL) 20 % (42-75)
[2019-11-18 06:57] LABS: <PLATELET ESTIMATE> ADEQUATE; ANISOCYTOSIS 2+; HOWELL-JOLLY BODIES 1+; HYPOCHROMIA 1+; OVALOCYTES 1+; POLYCHROMASIA 1+; TARGET CELLS 1+; TOXIC GRAN 1+
[2019-11-18 06:58] LABS: LARGE PLATELETS 1+
[2019-11-18] MEDS: INSULIN LISPRO 100 UNITS/ML, PEN SQ-INSULIN SCH ×5 (07:00→21:00)
[2019-11-18] MEDS: NOREPINEPHRINE 8 MG in SODIUM CHLORIDE 0.9% 242 ML IV PRN ×2 (08:53→22:06)
[2019-11-18] MEDS: CALCIUM CARBONATE 500 MG TABLET PO SCH (09:20)
[2019-11-18] MEDS: APIXABAN 2.5 MG TABLET PO SCH ×2 (09:20→21:32)
[2019-11-18] MEDS: LACTOBACILLUS CHEW TABLET PO SCH (09:20)
[2019-11-18] MEDS: OMEGA-3/FISH OIL CAPSULE PO SCH ×2 (09:20→21:32)
[2019-11-18] MEDS: FOLIC ACID 1 MG TABLET PO SCH (09:20)
[2019-11-18] MEDS: LORATADINE 10 MG TABLET PO SCH (09:20)
[2019-11-18] MEDS: CINACALCET 30 MG TABLET PO SCH (09:20)
[2019-11-18] MEDS ORDERED: DILTIAZEM 5 MG/ML, 5ML IVPush ONE (11:30)
[2019-11-18] MEDS ORDERED: AMIODARONE 150 MG in DEXTROSE 5% 100 ML IV ONE ×2 (12:00→17:00)
[2019-11-18] MEDS ORDERED: FILTER 0.22 MICRON IV PRN (12:00)
[2019-11-18] MEDS: AMIODARONE 450 MG in DEXTROSE 5% 241 ML IV PRN (12:24)
[2019-11-18] MEDS: DIPHENOXYLATE/ATROPINE TABLET PO PRN (17:50)
[2019-11-18] MEDS: TBO-FILGRASTIM 480 MCG/0.8 ML SQ SCH (21:32)
[2019-11-18] MEDS: ATORVASTATIN 20 MG TABLET PO SCH (21:32)
[2019-11-18] MEDS: INSULIN GLARGINE 100 UNITS/ML, PEN SQ-INSULIN SCH (22:13)
[2019-11-19] MEDS: AMIODARONE 450 MG in DEXTROSE 5% 241 ML IV PRN ×2 (03:04→16:53)
[2019-11-19] MEDS: PIPERACILLIN/TAZO/PMX 2.25GM 50 ML IV SCH ×2 (05:10→16:53)
[2019-11-19 05:45] LABS: ANION GAP 8 mmol/L (5-15); CALCIUM 8.5 mg/dL (8.5-10.1); CHLORIDE 95 mmol/L (98-107); CREATININE 5.47 mg/dL (0.7-1.3)
[2019-11-19] MEDS ORDERED: PANTOPRAZOLE 40MG TABLET PO SCH (06:00)
[2019-11-19 06:31] LABS: MD YES; MEAN CORPUSCULAR HEMOGLOBIN 32.6 pg (27.5-34.5); MEAN CORPUSCULAR HGB CONC 32.2 g/dL (33.2-36.2); MEAN CORPUSCULAR VOLUME 101.1 fL (81-97); MEAN PLATELET VOLUME 9.4 fL (7.4-10.4); PLATELET COUNT 156 x10^3/uL (130-400); RED BLOOD COUNT 2.63 x10^6/uL (4.38-5.82); RED CELL DISTRIBUTION WIDTH 22.8 % (9.4-14.8)
[2019-11-19 06:40] LABS: BAND#(MANUAL) 0.06 x10^3/uL; BANDS%(MANUAL) 5 % (0-7); LYMPH#(MANUAL) 0.46 x10^3/uL (1-3.4); LYMPHS% (MANUAL) 38 % (22-44); METAMYELOCYTES# (MANUAL) 0.02 x10^3/uL (0-0); METAMYELOCYTES% (MANUAL) 2 % (0-1); MONOS#(MANUAL) 0.19 x10^3/uL (0.3-2.7); MONOS% (MANUAL) 16 % (2-9); NRBC % (MANUAL) 9 % (0-1); SEG#(MANUAL) 0.47 x10^3/uL (1.8-6.8); SEGS% (MANUAL) 39 % (42-75)
[2019-11-19 06:41] LABS: ANISOCYTOSIS 2+; HYPOCHROMIA 1+; OVALOCYTES 1+; POLYCHROMASIA 1+; TARGET CELLS 1+
[2019-11-19 06:42] LABS: <PLATELET ESTIMATE> ADEQUATE; HOWELL-JOLLY BODIES 1+
[2019-11-19 06:46] LABS: LARGE PLATELETS 1+
[2019-11-19] MEDS: INSULIN LISPRO 100 UNITS/ML, PEN SQ-INSULIN SCH ×4 (07:00→20:36)
[2019-11-19] MEDS: OMEGA-3/FISH OIL CAPSULE PO SCH ×2 (08:45→20:20)
[2019-11-19] MEDS: FOLIC ACID 1 MG TABLET PO SCH (08:45)
[2019-11-19] MEDS: CALCIUM CARBONATE 500 MG TABLET PO SCH (08:46)
[2019-11-19] MEDS: LACTOBACILLUS CHEW TABLET PO SCH (08:46)
[2019-11-19] MEDS: APIXABAN 2.5 MG TABLET PO SCH ×2 (08:46→20:20)
[2019-11-19] MEDS: LORATADINE 10 MG TABLET PO SCH (08:46)
[2019-11-19] MEDS: CINACALCET 30 MG TABLET PO SCH (08:46)
[2019-11-19] MEDS: TBO-FILGRASTIM 480 MCG/0.8 ML SQ SCH (09:00)
[2019-11-19 12:15] LABS: CREATININE 3.41 mg/dL (0.7-1.3)
[2019-11-19] MEDS: NOREPINEPHRINE 8 MG in SODIUM CHLORIDE 0.9% 242 ML IV PRN (12:56)
[2019-11-19] MEDS: MIDODRINE 5 MG TABLET PO SCH ×2 (13:54→21:30)
[2019-11-19] MEDS: AMIODARONE 150 MG in DEXTROSE 5% 100 ML IV ONE ×2 (18:00→20:19)
[2019-11-19] MEDS: ATORVASTATIN 20 MG TABLET PO SCH (20:20)
[2019-11-19] MEDS: INSULIN GLARGINE 100 UNITS/ML, PEN SQ-INSULIN SCH (20:36)
[2019-11-20] MEDS: PIPERACILLIN/TAZO/PMX 2.25GM 50 ML IV SCH ×3 (00:23→17:17)
[2019-11-20] MEDS: NOREPINEPHRINE 8 MG in SODIUM CHLORIDE 0.9% 242 ML IV PRN (03:47)
[2019-11-20 04:33] LABS: MEAN CORPUSCULAR HEMOGLOBIN 32.4 pg (27.5-34.5); MEAN CORPUSCULAR HGB CONC 31.8 g/dL (33.2-36.2); MEAN CORPUSCULAR VOLUME 101.8 fL (81-97); MEAN PLATELET VOLUME 9.9 fL (7.4-10.4); PLATELET COUNT 148 x10^3/uL (130-400); RED BLOOD COUNT 2.53 x10^6/uL (4.38-5.82)
[2019-11-20 04:38] LABS: ALBUMIN 1.4 g/dL (3.4-5.0); ANION GAP 9 mmol/L (5-15); CALCIUM 8.3 mg/dL (8.5-10.1); CHLORIDE 101 mmol/L (98-107); CREATININE 3.66 mg/dL (0.7-1.3)
[2019-11-20 04:41] LABS: VANCOMYCIN,RANDOM 12.4 mcg/mL
[2019-11-20 05:03] LABS: MD YES
[2019-11-20 05:06] LABS: ANISOCYTOSIS 2+; BAND#(MANUAL) 0.64 x10^3/uL; BANDS%(MANUAL) 14 % (0-7); EOS#(MANUAL) 0.09 x10^3/uL (0.0-0.4); EOS% (MANUAL) 2 % (1-7); HYPOCHROMIA 1+; LYMPH#(MANUAL) 0.69 x10^3/uL (1-3.4); LYMPHS% (MANUAL) 15 % (22-44); METAMYELOCYTES# (MANUAL) 0.23 x10^3/uL (0-0); METAMYELOCYTES% (MANUAL) 5 % (0-1); MONOS#(MANUAL) 0.64 x10^3/uL (0.3-2.7); MONOS% (MANUAL) 14 % (2-9); NRBC % (MANUAL) 1 % (0-1); POLYCHROMASIA 1+; REACTIVE LYMPHS # (MANUAL) 0.09 x10^3/uL (0-0); REACTIVE LYMPHS % (MANUAL) 2 % (0-0); SEG#(MANUAL) 2.21 x10^3/uL (1.8-6.8); SEGS% (MANUAL) 48 % (42-75)
[2019-11-20 05:07] LABS: OVALOCYTES 1+; TARGET CELLS 1+
[2019-11-20 05:08] LABS: <PLATELET ESTIMATE> ADEQUATE; HOWELL-JOLLY BODIES 1+
[2019-11-20 05:09] LABS: LARGE PLATELETS 1+
[2019-11-20] MEDS: MIDODRINE 5 MG TABLET PO SCH ×3 (05:39→22:04)
[2019-11-20] MEDS ORDERED: POTASSIUM PHOSPHATE 22 MEQ in SODIUM CHLORIDE 0.9% 500 ML IV ONE (06:30)
[2019-11-20] MEDS: OMEGA-3/FISH OIL CAPSULE PO SCH ×2 (09:05→20:49)
[2019-11-20] MEDS: CALCIUM CARBONATE 500 MG TABLET PO SCH (09:05)
[2019-11-20] MEDS: LACTOBACILLUS CHEW TABLET PO SCH (09:05)
[2019-11-20] MEDS: LORATADINE 10 MG TABLET PO SCH (09:05)
[2019-11-20] MEDS: PANTOPRAZOLE 40MG TABLET PO SCH (09:05)
[2019-11-20] MEDS: APIXABAN 2.5 MG TABLET PO SCH ×2 (09:05→20:49)
[2019-11-20] MEDS: FOLIC ACID 1 MG TABLET PO SCH (09:05)
[2019-11-20] MEDS: CINACALCET 30 MG TABLET PO SCH (09:05)
[2019-11-20] MEDS: INSULIN LISPRO 100 UNITS/ML, PEN SQ-INSULIN SCH ×4 (09:06→20:26)
[2019-11-20] MEDS: AMIODARONE 200 MG TABLET PO SCH (09:06)
[2019-11-20] MEDS ORDERED: MAGNESIUM SULFATE/D5W 100 ML IV ONE (09:30)
[2019-11-20] MEDS ORDERED: VANCOMYCIN 1,800 MG in SODIUM CHLORIDE 0.9% 250 ML IV ONE (12:00)
[2019-11-20] MEDS: ATORVASTATIN 20 MG TABLET PO SCH (20:49)
[2019-11-20] MEDS: INSULIN GLARGINE 100 UNITS/ML, PEN SQ-INSULIN SCH (20:50)
[2019-11-21] MEDS: PIPERACILLIN/TAZO/PMX 2.25GM 50 ML IV SCH (00:50)
[2019-11-21] MEDS: MIDODRINE 5 MG TABLET PO SCH ×3 (06:08→22:16)
[2019-11-21 06:17] LABS: ALBUMIN 1.4 g/dL (3.4-5.0); ANION GAP 8 mmol/L (5-15); CALCIUM 8.1 mg/dL (8.5-10.1); CHLORIDE 102 mmol/L (98-107); CREATININE 4.68 mg/dL (0.7-1.3)
[2019-11-21 06:22] LABS: MEAN CORPUSCULAR HEMOGLOBIN 32.2 pg (27.5-34.5); MEAN CORPUSCULAR HGB CONC 31.8 g/dL (33.2-36.2); MEAN CORPUSCULAR VOLUME 101.2 fL (81-97); MEAN PLATELET VOLUME 9.9 fL (7.4-10.4); PLATELET COUNT 153 x10^3/uL (130-400); RED BLOOD COUNT 2.27 x10^6/uL (4.38-5.82); RED CELL DISTRIBUTION WIDTH 22.3 % (9.4-14.8)
[2019-11-21] MEDS ORDERED: POTASSIUM PHOSPHATE 44 MEQ in SODIUM CHLORIDE 0.9% 500 ML IV ONE (07:00)
[2019-11-21] MEDS ORDERED: MAGNESIUM SULFATE/D5W 100 ML IV ONE (07:00)
[2019-11-21 07:03] LABS: MD YES
[2019-11-21 07:05] LABS: ANISOCYTOSIS 1+; BAND#(MANUAL) 0.76 x10^3/uL; BANDS%(MANUAL) 8 % (0-7); EOS#(MANUAL) 0.19 x10^3/uL (0.0-0.4); EOS% (MANUAL) 2 % (1-7); HYPOCHROMIA 1+; LYMPH#(MANUAL) 1.14 x10^3/uL (1-3.4); LYMPHS% (MANUAL) 12 % (22-44); MONOS#(MANUAL) 0.86 x10^3/uL (0.3-2.7); MONOS% (MANUAL) 9 % (2-9); OVALOCYTES 1+; POLYCHROMASIA 1+; SEG#(MANUAL) 6.56 x10^3/uL (1.8-6.8); SEGS% (MANUAL) 69 % (42-75); TARGET CELLS 1+
[2019-11-21 07:07] LABS: <PLATELET ESTIMATE> ADEQUATE; LARGE PLATELETS 1+
[2019-11-21] MEDS: PANTOPRAZOLE 40MG TABLET PO SCH (08:32)
[2019-11-21] MEDS: AMIODARONE 200 MG TABLET PO SCH (08:33)
[2019-11-21] MEDS: CINACALCET 30 MG TABLET PO SCH (08:33)
[2019-11-21] MEDS: LACTOBACILLUS CHEW TABLET PO SCH (08:33)
[2019-11-21] MEDS: FOLIC ACID 1 MG TABLET PO SCH (08:33)
[2019-11-21] MEDS: CALCIUM CARBONATE 500 MG TABLET PO SCH (08:33)
[2019-11-21] MEDS: LORATADINE 10 MG TABLET PO SCH (08:33)
[2019-11-21] MEDS: OMEGA-3/FISH OIL CAPSULE PO SCH ×2 (08:33→22:17)
[2019-11-21] MEDS: INSULIN LISPRO 100 UNITS/ML, PEN SQ-INSULIN SCH ×4 (08:34→22:49)
[2019-11-21] MEDS: APIXABAN 2.5 MG TABLET PO SCH ×2 (08:34→22:17)
[2019-11-21] MEDS: NEUTRA PHOS K 250 MG TABLET PO SCH ×3 (12:12→22:16)
[2019-11-21] MEDS: ATORVASTATIN 20 MG TABLET PO SCH (22:16)
[2019-11-21] MEDS: INSULIN GLARGINE 100 UNITS/ML, PEN SQ-INSULIN SCH (22:49)
[2019-11-22 06:15] LABS: MEAN CORPUSCULAR HEMOGLOBIN 31.8 pg (27.5-34.5); MEAN CORPUSCULAR HGB CONC 31.7 g/dL (33.2-36.2); MEAN CORPUSCULAR VOLUME 100.4 fL (81-97); MEAN PLATELET VOLUME 9.6 fL (7.4-10.4); PLATELET COUNT 187 x10^3/uL (130-400); RED BLOOD COUNT 2.32 x10^6/uL (4.38-5.82)
[2019-11-22 06:18] LABS: ALBUMIN 1.4 g/dL (3.4-5.0); ANION GAP 7 mmol/L (5-15); CALCIUM 7.9 mg/dL (8.5-10.1); CHLORIDE 103 mmol/L (98-107)
[2019-11-22 06:34] LABS: MD YES
[2019-11-22 06:36] LABS: ANISOCYTOSIS 1+; BAND#(MANUAL) 0.73 x10^3/uL; BANDS%(MANUAL) 7 % (0-7); LYMPH#(MANUAL) 0.73 x10^3/uL (1-3.4); LYMPHS% (MANUAL) 7 % (22-44); MONOS#(MANUAL) 0.42 x10^3/uL (0.3-2.7); MONOS% (MANUAL) 4 % (2-9); MYELOCYTES# (MANUAL) 0.42 x10^3/uL (0-0); MYELOCYTES% (MANUAL) 4 % (0-0); SEG#(MANUAL) 8.11 x10^3/uL (1.8-6.8); SEGS% (MANUAL) 78 % (42-75)
[2019-11-22 06:37] LABS: HYPOCHROMIA 1+; OVALOCYTES 1+; POLYCHROMASIA 1+; TARGET CELLS 1+
[2019-11-22 06:38] LABS: <PLATELET ESTIMATE> ADEQUATE; LARGE PLATELETS 1+
[2019-11-22] MEDS: MIDODRINE 5 MG TABLET PO SCH ×3 (06:40→21:51)
[2019-11-22] MEDS ORDERED: SODIUM PHOSPHATE 20 MMOL in SODIUM CHLORIDE 0.9% 500 ML IV ONE (07:00)
[2019-11-22] MEDS: INSULIN LISPRO 100 UNITS/ML, PEN SQ-INSULIN SCH ×4 (07:00→20:25)
[2019-11-22] MEDS: NOREPINEPHRINE 8 MG in SODIUM CHLORIDE 0.9% 242 ML IV PRN (08:03)
[2019-11-22] MEDS: AMIODARONE 200 MG TABLET PO SCH (08:49)
[2019-11-22] MEDS: CINACALCET 30 MG TABLET PO SCH (08:49)
[2019-11-22] MEDS: APIXABAN 2.5 MG TABLET PO SCH ×2 (08:49→20:16)
[2019-11-22] MEDS: OMEGA-3/FISH OIL CAPSULE PO SCH ×2 (08:49→20:16)
[2019-11-22] MEDS: FOLIC ACID 1 MG TABLET PO SCH (08:49)
[2019-11-22] MEDS: CALCIUM CARBONATE 500 MG TABLET PO SCH (08:49)
[2019-11-22] MEDS: LORATADINE 10 MG TABLET PO SCH (08:55)
[2019-11-22] MEDS: NEUTRA PHOS K 250 MG TABLET PO SCH ×3 (08:55→20:16)
[2019-11-22] MEDS: PANTOPRAZOLE 40MG TABLET PO SCH (08:55)
[2019-11-22] MEDS: LACTOBACILLUS CHEW TABLET PO SCH (08:55)
[2019-11-22] MEDS ORDERED: MAGNESIUM SULFATE PMX 4GM/100M 100 ML IV ONE (09:30)
[2019-11-22] MEDS: ATORVASTATIN 20 MG TABLET PO SCH (20:16)
[2019-11-22] MEDS: INSULIN GLARGINE 100 UNITS/ML, PEN SQ-INSULIN SCH (20:25)
[2019-11-22] MEDS: DIPHENOXYLATE/ATROPINE TABLET PO PRN (21:09)
[2019-11-23 05:06] LABS: ALBUMIN 1.5 g/dL (3.4-5.0); ANION GAP 9 mmol/L (5-15); CALCIUM 7.9 mg/dL (8.5-10.1); CHLORIDE 103 mmol/L (98-107); CREATININE 4.28 mg/dL (0.7-1.3)
[2019-11-23 05:13] LABS: MEAN CORPUSCULAR HEMOGLOBIN 32.2 pg (27.5-34.5); MEAN CORPUSCULAR HGB CONC 32.3 g/dL (33.2-36.2); MEAN CORPUSCULAR VOLUME 99.5 fL (81-97); MEAN PLATELET VOLUME 10.2 fL (7.4-10.4); PLATELET COUNT 221 x10^3/uL (130-400); RED CELL DISTRIBUTION WIDTH 21.9 % (9.4-14.8)
[2019-11-23] MEDS: MIDODRINE 5 MG TABLET PO SCH ×3 (05:24→20:10)
[2019-11-23 05:59] LABS: MD YES
[2019-11-23 06:00] LABS: BAND#(MANUAL) 0.37 x10^3/uL; BANDS%(MANUAL) 4 % (0-7); EOS#(MANUAL) 0.09 x10^3/uL (0.0-0.4); EOS% (MANUAL) 1 % (1-7); METAMYELOCYTES# (MANUAL) 0.18 x10^3/uL (0-0); METAMYELOCYTES% (MANUAL) 2 % (0-1); MONOS#(MANUAL) 0.92 x10^3/uL (0.3-2.7); MONOS% (MANUAL) 10 % (2-9)
[2019-11-23 06:01] LABS: ANISOCYTOSIS 1+; HYPOCHROMIA 1+; LYMPHS% (MANUAL) 13 % (22-44); SEG#(MANUAL) 6.44 x10^3/uL (1.8-6.8); SEGS% (MANUAL) 70 % (42-75); TARGET CELLS 1+
[2019-11-23 06:02] LABS: <PLATELET ESTIMATE> ADEQUATE; LARGE PLATELETS 1+; OVALOCYTES 1+; POLYCHROMASIA 1+
[2019-11-23] MEDS: INSULIN LISPRO 100 UNITS/ML, PEN SQ-INSULIN SCH ×4 (07:00→21:10)
[2019-11-23] MEDS: AMIODARONE 200 MG TABLET PO SCH (08:18)
[2019-11-23] MEDS: CALCIUM CARBONATE 500 MG TABLET PO SCH (08:19)
[2019-11-23] MEDS: NEUTRA PHOS K 250 MG TABLET PO SCH (08:19)
[2019-11-23] MEDS: OMEGA-3/FISH OIL CAPSULE PO SCH ×2 (08:19→20:10)
[2019-11-23] MEDS: FOLIC ACID 1 MG TABLET PO SCH (08:19)
[2019-11-23] MEDS: LORATADINE 10 MG TABLET PO SCH (08:19)
[2019-11-23] MEDS: APIXABAN 2.5 MG TABLET PO SCH ×2 (08:19→20:10)
[2019-11-23] MEDS: PANTOPRAZOLE 40MG TABLET PO SCH (08:19)
[2019-11-23] MEDS: CINACALCET 30 MG TABLET PO SCH (08:19)
[2019-11-23] MEDS: LACTOBACILLUS CHEW TABLET PO SCH (08:20)
[2019-11-23 10:29] LABS: CREATININE 2.76 mg/dL (0.7-1.3)
[2019-11-23 12:30] VITALS: BP 100/66
[2019-11-23 19:58] VITALS: BP 112/72
[2019-11-23] MEDS: ATORVASTATIN 20 MG TABLET PO SCH (20:10)
[2019-11-23] MEDS ORDERED: METOPROLOL 1 MG/ML, 5ML IVPush ONE (21:00)
[2019-11-23 21:08] VITALS: BP 121/68
[2019-11-23] MEDS: INSULIN GLARGINE 100 UNITS/ML, PEN SQ-INSULIN SCH (21:09)
[2019-11-24 01:33] VITALS: BP 100/62
[2019-11-24 01:34] VITALS: BP 100/62
[2019-11-24 03:59] LABS: ALBUMIN 1.6 g/dL (3.4-5.0); ANION GAP 7 mmol/L (5-15); CALCIUM 7.8 mg/dL (8.5-10.1); CHLORIDE 101 mmol/L (98-107); CREATININE 3.36 mg/dL (0.7-1.3)
[2019-11-24 04:10] LABS: MD YES; MEAN CORPUSCULAR HEMOGLOBIN 32.1 pg (27.5-34.5); MEAN CORPUSCULAR HGB CONC 32.2 g/dL (33.2-36.2); MEAN CORPUSCULAR VOLUME 99.8 fL (81-97); MEAN PLATELET VOLUME 9.9 fL (7.4-10.4); PLATELET COUNT 256 x10^3/uL (130-400); RED BLOOD COUNT 2.19 x10^6/uL (4.38-5.82); RED CELL DISTRIBUTION WIDTH 22.9 % (9.4-14.8)
[2019-11-24 04:12] LABS: ANISOCYTOSIS 1+; BASOS#(MANUAL) 0.17 x10^3/uL (0-0.1); BASOS% (MANUAL) 2 % (0-1); LYMPH#(MANUAL) 1.53 x10^3/uL (1-3.4); LYMPHS% (MANUAL) 18 % (22-44); METAMYELOCYTES# (MANUAL) 0.17 x10^3/uL (0-0); METAMYELOCYTES% (MANUAL) 2 % (0-1); MONOS#(MANUAL) 0.77 x10^3/uL (0.3-2.7); MONOS% (MANUAL) 9 % (2-9); MYELOCYTES# (MANUAL) 0.09 x10^3/uL (0-0); MYELOCYTES% (MANUAL) 1 % (0-0); NRBC % (MANUAL) 1 % (0-1); OVALOCYTES 1+; SEG#(MANUAL) 5.78 x10^3/uL (1.8-6.8); SEGS% (MANUAL) 68 % (42-75)
[2019-11-24 04:13] LABS: TARGET CELLS 2+
[2019-11-24 04:14] LABS: HYPOCHROMIA 1+; POLYCHROMASIA 1+
[2019-11-24 04:15] LABS: <PLATELET ESTIMATE> ADEQUATE; LARGE PLATELETS 1+
[2019-11-24 05:51] VITALS: BP 118/54
[2019-11-24] MEDS: MIDODRINE 5 MG TABLET PO SCH ×2 (05:54→13:21)
[2019-11-24 07:04] VITALS: BP 123/63
[2019-11-24] MEDS: PANTOPRAZOLE 40MG TABLET PO SCH (07:50)
[2019-11-24] MEDS: FOLIC ACID 1 MG TABLET PO SCH (07:50)
[2019-11-24] MEDS: APIXABAN 2.5 MG TABLET PO SCH (07:50)
[2019-11-24] MEDS: CINACALCET 30 MG TABLET PO SCH (07:51)
[2019-11-24] MEDS: LORATADINE 10 MG TABLET PO SCH (07:51)
[2019-11-24] MEDS: CALCIUM CARBONATE 500 MG TABLET PO SCH (07:51)
[2019-11-24] MEDS: LACTOBACILLUS CHEW TABLET PO SCH (07:51)
[2019-11-24] MEDS: OMEGA-3/FISH OIL CAPSULE PO SCH (07:51)
[2019-11-24] MEDS: AMIODARONE 200 MG TABLET PO SCH (07:51)
[2019-11-24] MEDS: INSULIN LISPRO 100 UNITS/ML, PEN SQ-INSULIN SCH ×2 (07:52→10:52)
[2019-11-24] MEDS ORDERED: MIDO5TAB9 PO (12:06)
[2019-11-24 13:13] VITALS: BP 89/55
== END 2019-11-24 18:18 | disposition home health service (06) | DRG 871 ==
LOC: ED 14:56 → EDIP 17:36 → CCU 18:59 → 5SO 11-20 16:04 → 4WST 11-23 16:00
PROVIDERS: ADMIT Hospitalist; ATTEND Internal Medicine
PROC: 0T9B70Z Drainage of Bladder with Drainage Device, Via Natural or Artificial Opening (ICD-10-PCS; principal; 2019-11-17)
DX: A41.9 Sepsis, unspecified organism (principal); N18.6 End stage renal disease; E43 Unspecified severe protein-calorie malnutrition; R65.21 Severe sepsis with septic shock; R57.1 Hypovolemic shock; C18.9 Malignant neoplasm of colon, unspecified; E87.1 Hypo-osmolality and hyponatremia; I13.2 Hypertensive heart and chronic kidney disease with heart failure and with stage 5 chronic kidney disease, or end stage renal disease; I48.92 Unspecified atrial flutter; I50.32 Chronic diastolic (congestive) heart failure; Z94.0 Kidney transplant status; J98.11 Atelectasis; E87.3 Alkalosis; H54.61 Unqualified visual loss, right eye, normal vision left eye; Z68.27 Body mass index [BMI] 27.0-27.9, adult; D63.1 Anemia in chronic kidney disease; D70.1 Agranulocytosis secondary to cancer chemotherapy; E11.22 Type 2 diabetes mellitus with diabetic chronic kidney disease; E21.3 Hyperparathyroidism, unspecified; E78.5 Hyperlipidemia, unspecified; E83.39 Other disorders of phosphorus metabolism; E83.51 Hypocalcemia; E87.6 Hypokalemia; I25.10 Atherosclerotic heart disease of native coronary artery without angina pectoris; N25.0 Renal osteodystrophy; T45.1X5A Adverse effect of antineoplastic and immunosuppressive drugs, initial encounter; Z79.01 Long term (current) use of anticoagulants; Z86.718 Personal history of other venous thrombosis and embolism; Z93.3 Colostomy status; Z99.2 Dependence on renal dialysis
CPT/HCPCS: 36415; 36600; 71045; 80048; 80053; 80069; 80202; 82330; 82533; 82565; 82803; 82962; 83605; 83735; 84100; 84145; 85014; 85018; 85025; 86705; 86706; 86850; 86900; 87040; 87081; 87324; 87328; 87329; 87340; 90935; 93005; 96361; 96365; 99291; G0378; J2543; J3370; J3480; J7060; C9113; J0282; J1447; J1815; J3475; J3490; J7030; J7040; J7050

== ENCOUNTER 2019-12-03 07:03 | Outpatient (CLI) | payer MEDICARE ==
[~2019-12-03 07:03] MED LIST changes: +MIDO5TAB9 PO
[2019-12-03] MEDS ORDERED: OMNIPAQUE 350 MG/ML, 100ML BOTTLE ONE (07:55)
== END 2019-12-03 23:59 | disposition home or self-care (01) ==
LOC: RAD 07:03
PROVIDERS: ATTEND Specialist
DX: C20 Malignant neoplasm of rectum (principal); N62 Hypertrophy of breast; J98.4 Other disorders of lung; J92.9 Pleural plaque without asbestos; R60.9 Edema, unspecified; Z90.6 Acquired absence of other parts of urinary tract; N26.1 Atrophy of kidney (terminal)
CPT/HCPCS: 71260; 74177; Q9967

== ENCOUNTER 2020-02-01 14:59 | Observation (INO) | payer MEDICARE ==
[~2020-02-01] VITALS: Ht 185.4 cm; Wt 96.0 kg
[2020-02-01 15:17] VITALS: BP 147/70
[2020-02-01] MEDS ORDERED: SODIUM CHLORIDE 0.9% 1,000 ML IV SCH (15:26)
[2020-02-01 17:00] LABS: ALANINE AMINOTRANSFERASE 12 U/L (12-78); ALBUMIN 2.5 g/dL (3.4-5.0); ANION GAP 3 mmol/L (5-15); CALCIUM 8.6 mg/dL (8.5-10.1); CHLORIDE 99 mmol/L (98-107); CREATININE 2.89 mg/dL (0.7-1.3)
[2020-02-01] MEDS ORDERED: CHLORHEXIDINE 15 ML UDC MM ONE (17:00)
[2020-02-01 17:03] LABS: ALKALINE PHOSPHATASE 107 U/L (45-117); BILIRUBIN,TOTAL 0.4 mg/dL (0.2-1.0); TOTAL PROTEIN 6.5 g/dL (6.4-8.2)
[2020-02-01] MEDS ORDERED: FENTANYL PF 100 MCG/2ML IV PRN (18:00)
[2020-02-01] MEDS ORDERED: ONDANSETRON 2MG/ML, 2ML IVPush PRN (18:00)
[2020-02-01] MEDS ORDERED: hydrALAzine 20 MG/ML, 1ML IV PRN (18:00)
[2020-02-01] MEDS ORDERED: HYDROmorphone 1 MG/ML, 1ML INJ IVPush PRN (18:00)
[2020-02-01] MEDS ORDERED: PROMETHAZINE 25 MG/ML, 1ML IVPush PRN (18:00)
[2020-02-01] MEDS ORDERED: ACETAMINOPHEN 325 MG TABLET PO PRN ×3 (18:00→22:30)
[2020-02-01] MEDS ORDERED: OXYcodone 5 MG/5 ML ORAL.SOL UDC PO PRN (18:00)
[2020-02-01] MEDS ORDERED: LABETALOL 5MG/ML, 20ML IV PRN (18:00)
[2020-02-01] MEDS ORDERED: EPHEDRINE 50 MG/ML, 1ML IVPush PRN (18:00)
[2020-02-01] MEDS ORDERED: MEPERIDINE/PF 25MG/0.5ML IVPush PRN (18:00)
[2020-02-01] MEDS ORDERED: FENTANYL PF 250 MCG/5ML ONE (19:22)
[2020-02-01] MEDS ORDERED: LIDOCAINE-MPF 2% ,5ML ONE (19:23)
[2020-02-01] MEDS ORDERED: PAPAVERINE 30 MG/ML, 2ML ONE (19:54)
[2020-02-01] MEDS ORDERED: PROTAMINE SULFATE 10 MG/ML, 5ML ONE (19:54)
[2020-02-01] MEDS ORDERED: HEPARIN 1,000 UNITS/ML, 10ML ONE (19:54)
[2020-02-01] MEDS ORDERED: MIDAZOLAM 1 MG/ML, 2ML ONE (20:02)
[2020-02-01] MEDS ORDERED: CEFAZOLIN 1,000 MG ONE (20:15)
[2020-02-01] MEDS ORDERED: PROPOFOL 10 MG/ML, 20ML ONE ×2 (20:48→21:41)
[2020-02-01] MEDS ORDERED: PHENYLEPHRINE 10 MG/ML ONE (20:48)
[2020-02-01] MEDS ORDERED: DEXAMETHASONE 4 MG/ML, 1ML ONE (20:48)
[2020-02-01] MEDS ORDERED: ONDANSETRON 2MG/ML, 2ML ONE (20:48)
[2020-02-01] MEDS ORDERED: FENTANYL PF 100 MCG/2ML ONE (22:07)
[2020-02-01] MEDS ORDERED: OXYcodone 5 MG/5 ML ORAL.SOL UDC ONE (22:07)
[2020-02-01] MEDS: CINACALCET MC SCH (22:30)
[2020-02-01] MEDS: MIDODRINE 5 MG TABLET PO SCH (22:30)
[2020-02-01] MEDS ORDERED: CINACALCET 30 MG TABLET PO SCH (22:30)
[2020-02-01] MEDS ORDERED: DIPHENOXYLATE/ATROPINE TABLET PO PRN (22:30)
[2020-02-01] MEDS ORDERED: PATIROMER CALCIUM SORBITEX HOMEMEDPO SCH (22:30)
[2020-02-01] MEDS ORDERED: TEMPLATE NON-FORMULARY MED. (Semaglutide (Ozempic) 1 MG) SQ SCH (22:30)
[2020-02-01] MEDS ORDERED: HYDROcodone/APAP 5/325 TABLET PO PRN (22:30)
[2020-02-02 00:51] VITALS: BP 109/62
[2020-02-02 03:52] VITALS: BP 117/70
[2020-02-02 04:21] VITALS: BP 117/70
[2020-02-02] MEDS: MIDODRINE 5 MG TABLET PO SCH (06:04)
[2020-02-02] MEDS: CINACALCET MC SCH (06:30)
[2020-02-02] MEDS ORDERED: INSULIN LISPRO 100 UNITS/ML, PEN SQ-INSULIN SCH (07:00)
[2020-02-02 08:00] VITALS: BP 123/74
[2020-02-02] MEDS ORDERED: FOLIC ACID 1 MG TABLET PO SCH (09:00)
[2020-02-02] MEDS ORDERED: OMEGA-3/FISH OIL CAPSULE PO SCH (09:00)
[2020-02-02] MEDS ORDERED: LACTOBACILLUS CHEW TABLET PO SCH (09:00)
[2020-02-02] MEDS ORDERED: APIXABAN 2.5 MG TABLET PO SCH (09:00)
[2020-02-02] MEDS ORDERED: CALCIUM CARBONATE 500 MG TAB.CHEW PO SCH (09:00)
[2020-02-02] MEDS ORDERED: ATORVASTATIN 20 MG TABLET PO SCH (21:00)
[2020-02-02] MEDS ORDERED: INSULIN GLARGINE 100 UNITS/ML, PEN SQ-INSULIN SCH (21:00)
== END 2020-02-02 08:30 | disposition home or self-care (01) ==
LOC: OR 14:59 → 4NE 16:49 → OR 22:04 → 4NE 22:05
PROVIDERS: ADMIT Surgery; ATTEND Surgery
DX: Z03.818 Encounter for observation for suspected exposure to other biological agents ruled out (principal); T82.590A Other mechanical complication of surgically created arteriovenous fistula, initial encounter; Y71.2 Prosthetic and other implants, materials and accessory cardiovascular devices associated with adverse incidents; E10.8 Type 1 diabetes mellitus with unspecified complications; C19 Malignant neoplasm of rectosigmoid junction; Z79.899 Other long term (current) drug therapy
CPT/HCPCS: 36415; 36830; 80053; 82962; 87635; C1768; G0378; J0690; J1100; J1644; J1815; J2250; J2370; J2405; J2704; J3010; J3490; J2720; J2440

== ENCOUNTER → 2020-03-06 | Outpatient (CLI) | payer MEDICARE ==
[~2020-03-06] MED LIST changes: +OMNIPAQUE 350 MG/ML, 100ML BOTTLE ONE
== END | disposition home or self-care (01) ==
LOC: CFH 12:36
PROVIDERS: ATTEND Specialist
DX: C20 Malignant neoplasm of rectum (principal); N62 Hypertrophy of breast
CPT/HCPCS: 71260; 74177; Q9967

== ENCOUNTER 2020-04-24 15:07 | Day surgery (SDC) | payer MEDICARE ==
[~2020-04-24] VITALS: Ht 182.9 cm; Wt 89.4 kg
[~2020-04-24 15:07] MED LIST changes: +BUPIVACAINE/PF-EPI 0.5% 1:200K ONE; -CALC600T4 PO; +CALC600T60 PO; +CEFAZOLIN 1,000 MG ONE; +CEFT2FRO2 IV; +DEXAMETHASONE 4 MG/ML, 1ML ONE; +DEXAMETHASONE 4 MG/ML, 5ML ONE; +HEPARIN 1,000 UNITS/ML, 10ML ONE; -OMNIPAQUE 350 MG/ML, 100ML BOTTLE ONE; +PROPOFOL 10 MG/ML, 20ML ONE; +PROTAMINE SULFATE 10 MG/ML, 5ML ONE; +SUCCINYLCHOLINE 20 MG/ML, 10ML ONE; +THROMBIN 5,000 UNIT VIAL TP ONE
[2020-04-24 15:24] VITALS: BP 142/73
[2020-04-24] MEDS ORDERED: LACTATED RINGERS 1,000 ML IV SCH (15:28)
[2020-04-24] MEDS ORDERED: CHLORHEXIDINE 15 ML UDC MM STA (15:29)
[2020-04-24 16:45] LABS: ALANINE AMINOTRANSFERASE 12 U/L (12-78); ALBUMIN 2.2 g/dL (3.4-5.0); ANION GAP 6 mmol/L (5-15); CALCIUM 8.8 mg/dL (8.5-10.1); CHLORIDE 98 mmol/L (98-107); CREATININE 4.96 mg/dL (0.7-1.3)
[2020-04-24 16:47] LABS: ALKALINE PHOSPHATASE 96 U/L (45-117); BILIRUBIN,TOTAL 0.4 mg/dL (0.2-1.0); TOTAL PROTEIN 6.5 g/dL (6.4-8.2)
[2020-04-24] MEDS ORDERED: FENTANYL PF 250 MCG/5ML ONE (17:31)
[2020-04-24] MEDS ORDERED: HEPARIN 5,000 UNITS/ML, 1ML ONE (17:38)
[2020-04-24] MEDS ORDERED: BUPIVACAINE/EPI 0.5% 1:200K ONE (17:38)
[2020-04-24] MEDS ORDERED: CEFAZOLIN 1,000 MG ONE (17:49)
[2020-04-24] MEDS ORDERED: PROTAMINE SULFATE 10 MG/ML, 5ML ONE (17:49)
[2020-04-24] MEDS ORDERED: FENTANYL PF 100 MCG/2ML IV PRN (18:30)
[2020-04-24] MEDS ORDERED: PROMETHAZINE 25 MG/ML, 1ML IVPush PRN (18:30)
[2020-04-24] MEDS ORDERED: PROMETHAZINE 12.5 MG SUPP PR PRN (18:30)
[2020-04-24] MEDS ORDERED: MIDAZOLAM 1 MG/ML, 2ML IV PRN (18:30)
[2020-04-24] MEDS ORDERED: MEPERIDINE/PF 25MG/0.5ML IVPush PRN (18:30)
[2020-04-24] MEDS ORDERED: LABETALOL 5MG/ML, 20ML IV PRN (18:30)
[2020-04-24] MEDS ORDERED: ONDANSETRON 2MG/ML, 2ML IVPush PRN (18:30)
[2020-04-24] MEDS ORDERED: EPHEDRINE 50 MG/ML, 1ML IVPush PRN (18:30)
[2020-04-24] MEDS ORDERED: DIPHENHYDRAMINE 50 MG/ML, 1ML IVPush PRN (18:30)
[2020-04-24] MEDS ORDERED: DIAZEPAM 5 MG/ML, 2ML IVPush PRN (18:30)
[2020-04-24] MEDS ORDERED: HYDROmorphone 1 MG/ML, 1ML INJ IVPush PRN (18:30)
[2020-04-24] MEDS ORDERED: ALBUTEROL SULFATE 2.5 MG/3 ML NPPB PRN (18:30)
[2020-04-24] MEDS ORDERED: hydrALAzine 20 MG/ML, 1ML IV PRN (18:30)
[2020-04-24] MEDS ORDERED: OXYcodone 5 MG/5 ML ORAL.SOL UDC PO PRN (18:30)
[2020-04-24] MEDS ORDERED: ROCURONIUM 10MG/ML,5ML ONE (18:36)
[2020-04-24] MEDS ORDERED: EPHEDRINE 50 MG/ML, 1ML ONE (18:36)
[2020-04-24] MEDS ORDERED: PROPOFOL 10 MG/ML, 20ML ONE (18:36)
[2020-04-24] MEDS ORDERED: DEXAMETHASONE 4 MG/ML, 1ML ONE ×2 (18:36)
[2020-04-24] MEDS ORDERED: ONDANSETRON 2MG/ML, 2ML ONE (19:58)
[2020-04-24] MEDS ORDERED: MIDODRINE 5 MG TABLET PO ONE (20:30)
[2020-04-24 21:44] VITALS: BP 107/72
== END 2020-04-24 22:25 | disposition home or self-care (01) ==
LOC: OR 15:07 → 4NE 20:51 → OR 22:25
PROVIDERS: ATTEND Surgery
DX: T82.868A Thrombosis due to vascular prosthetic devices, implants and grafts, initial encounter (principal); N18.6 End stage renal disease; C78.5 Secondary malignant neoplasm of large intestine and rectum; F12.90 Cannabis use, unspecified, uncomplicated; Y83.8 Other surgical procedures as the cause of abnormal reaction of the patient, or of later complication, without mention of misadventure at the time of the procedure; Z98.890 Other specified postprocedural states; Z90.49 Acquired absence of other specified parts of digestive tract; Z79.01 Long term (current) use of anticoagulants; Z79.899 Other long term (current) drug therapy; Z79.4 Long term (current) use of insulin; Z72.89 Other problems related to lifestyle; Z82.49 Family history of ischemic heart disease and other diseases of the circulatory system; Z83.3 Family history of diabetes mellitus
CPT/HCPCS: 36415; 36832; 80053; 87635; C1768; J0690; J1100; J1644; J2405; J2704; J2720; J3010; 82962; G0378; J0330